=== PATIENT | male | born 1955 | race Caucasian/White ===

== ENCOUNTER 2017-12-12 10:00 | Inpatient (IN) | payer MEDICAID ==
[~2017-12-12] VITALS: Ht 181.6 cm; Wt 114.1 kg
[~2017-12-12 10:00] MED LIST: ALBU8.5H8 INH; AMIO200T57 PO; ARIP30TA8 PO; FINA5TAB11 PO; FLUP2.5T PO; MULT-38 PO; PYRI60TA PO; SYN0.088T PO; ZOL50T PO
[2017-12-12 10:53] LABS: CLARITY,URINE CLOUDY (Clear); COLOR,URINE STRAW (Yellow); GLUCOSE, URINE NEGATIVE (Neg); KETONES,URINE NEGATIVE (Neg); LEUKOCYTE ESTERASE ,URINE LARGE (Neg); NITRITES, URINE NEGATIVE (Neg); OCCULT BLOOD,URINE LARGE (Neg); PH,URINE 5.5 (4.8-8.0); PROTEIN,URINE TRACE mg/dl (Neg); UROBILINOGEN,URINE 0.2 E.U/dL (0.2-1.0)
[2017-12-12 10:56] LABS: UA COLLECTION TYPE STRAIGHT CATH
[2017-12-12 11:03] LABS: BASOPHILS % (AUTO) 0.2 % (0-1); EOSINOPHILS # (AUTO) 0.3 X10'3 (0-0.9); EOSINOPHILS % (AUTO) 1.8 % (0-6); HEMATOCRIT 35.6 % (42.0-52.0); HEMOGLOBIN 12.1 g/dl (14.0-17.9); LYMPHOCYTES # (AUTO) 0.9 X10'3 (1.1-4.8); LYMPHOCYTES % (AUTO) 5.8 % (21-51); MEAN CORPUSCULAR HEMOGLOBIN 31.5 PG (27.0-31.0); MEAN CORPUSCULAR HGB CONC 33.9 % (33.0-36.5); MEAN PLATELET VOLUME 7.2 FL (7.4-10.4); MONOCYTES # (AUTO) 0.4 X10'3 (0-0.9); MONOCYTES % (AUTO) 2.4 % (2-12); NEUTROPHILS # (AUTO) 14.7 X10'3 (1.8-7.7); NEUTROPHILS % (AUTO) 89.8 % (42-75); PLATELET COUNT 252 X10'3 (140-440); RED BLOOD COUNT 3.83 X10'6 (4.70-6.10); RED CELL DISTRIBUTION WIDTH 13.4 % (11.5-14.5); WHITE BLOOD COUNT 16.4 X10'3 (4.5-11.0)
[2017-12-12 11:04] LABS: BACTERIA,URINE 3+ /HPF (Neg); SQUAMOUS EPITHELIAL CELL,UR FEW /LPF (FEW); WBC,URINE TNTC /HPF (0-4)
[2017-12-12 11:05] LABS: TRANSITIONAL EPI CELLS,URINE FEW /HPF
[2017-12-12] MEDS ORDERED: CefTRIAXone 2gm/D5W 50ml 50 ML IV ONE (11:25)
[2017-12-12] MEDS ORDERED: normal saline 1000ML IV soln IV ONE (11:25)
[2017-12-12 11:28] LABS: ALANINE AMINOTRANSFERASE 23 U/L (12-78); ALBUMIN 2.7 G/DL (3.4-5.0); ALBUMIN/GLOBULIN RATIO 0.6 (1.1-1.5); ALKALINE PHOSPHATASE 86 IU/L (46-116); ANION GAP 11 (8-16); ASPARTATE AMINO TRANSFERASE 25 U/L (10-37); BILIRUBIN,TOTAL 1.2 MG/DL (0.1-1.0); BLOOD UREA NITROGEN 43 MG/DL (7-18); BUN/CREATININE RATIO 13.9 (5.4-32.0); CALCIUM 8.3 MG/DL (8.5-10.1); CHLORIDE 94 MMOL/L (99-107); GLUCOSE 167 MG/DL (70-104); POTASSIUM 4.2 MMOL/L (3.5-5.1); SODIUM 127 MMOL/L (135-145); TOTAL CARBON DIOXIDE 21.8 MMOL/L (24-32); TOTAL PROTEIN 7.1 G/DL (6.4-8.2); eGFR 20 ML/MIN
[2017-12-12] MEDS ORDERED: acetaminophen 325mg tablet PO PRN (11:45)
[2017-12-12] MEDS ORDERED: magnesium hydroxide 30ml (MOM) UD suspension PO PRN (11:45)
[2017-12-12] MEDS ORDERED: mag hydrox/Alum hydrox/simeth 30ml oral suspension PO PRN (11:45)
[2017-12-12] MEDS ORDERED: HYDROcodone/acetaminophen 5mg/325mg tablet PO PRN (11:45)
[2017-12-12] MEDS ORDERED: HYDROcodone/acetaminophen 10/325mg tab PO PRN (11:45)
[2017-12-12] MEDS ORDERED: ondansetron/PF 4mg/2ml inj IV PRN (11:45)
[2017-12-12] MEDS ORDERED: albuterol 2.5 MG/3 ML nebule NEB PRN (12:05)
[2017-12-12] MEDS ORDERED: TAMS0.4C32 PO (12:52)
[2017-12-12] MEDS ORDERED: SPIR25TA5 PO (12:54)
[2017-12-12] MEDS ORDERED: ASPI-611 PO (12:59)
[2017-12-12] MEDS ORDERED: CRAN1TAB3 (12:59)
[2017-12-12] MEDS ORDERED: UBID100C16 PO (12:59)
[2017-12-12] MEDS ORDERED: LEVO75TA PO (13:01)
[2017-12-12 13:20] VITALS: BP 109/63
[2017-12-12] MEDS: normal saline 1000ml 1,000 ML IV SCH ×2 (14:58→21:43)
[2017-12-12 18:29] LABS: CHOLESTEROL 110 MG/DL (0-200); HDL CHOLESTEROL 55 MG/DL (35-60); LDL CHOLESTEROL 48 MG/DL (50-100); TRIGLYCERIDES 38 MG/DL (20-135)
[2017-12-12] MEDS: amiodarone 200mg tablet PO SCH (19:30)
[2017-12-12] MEDS: heparin, porcine 5000 units/ml vial SQ SCH (19:30)
[2017-12-12 20:00] VITALS: BP_SYST 118; BP_SYST 124; BP_DIAS 66; BP_DIAS 75
[2017-12-13] VITALS: BP 98/63
[2017-12-13] MEDS: normal saline 1000ml 1,000 ML IV SCH ×2 (01:39→22:28)
[2017-12-13 05:17] LABS: BASOPHILS % (AUTO) 0.2 % (0-1); EOSINOPHILS # (AUTO) 0.3 X10'3 (0-0.9); EOSINOPHILS % (AUTO) 2.2 % (0-6); HEMOGLOBIN 10.7 g/dl (14.0-17.9); LYMPHOCYTES # (AUTO) 1.3 X10'3 (1.1-4.8); LYMPHOCYTES % (AUTO) 10.7 % (21-51); MEAN CORPUSCULAR HEMOGLOBIN 30.7 PG (27.0-31.0); MEAN CORPUSCULAR HGB CONC 33.4 % (33.0-36.5); MEAN CORPUSCULAR VOLUME 91.9 FL (78-98); MEAN PLATELET VOLUME 7.5 FL (7.4-10.4); NEUTROPHILS # (AUTO) 9.5 X10'3 (1.8-7.7); NEUTROPHILS % (AUTO) 78.9 % (42-75); PLATELET COUNT 253 X10'3 (140-440); RED BLOOD COUNT 3.48 X10'6 (4.70-6.10); RED CELL DISTRIBUTION WIDTH 13.5 % (11.5-14.5); WHITE BLOOD COUNT 12.1 X10'3 (4.5-11.0)
[2017-12-13 05:18] LABS: ALANINE AMINOTRANSFERASE 22 U/L (12-78); ALBUMIN 2.4 G/DL (3.4-5.0); ALBUMIN/GLOBULIN RATIO 0.6 (1.1-1.5); ALKALINE PHOSPHATASE 78 IU/L (46-116); ANION GAP 9 (8-16); ASPARTATE AMINO TRANSFERASE 29 U/L (10-37); BILIRUBIN,TOTAL 0.5 MG/DL (0.1-1.0); BLOOD UREA NITROGEN 38 MG/DL (7-18); BUN/CREATININE RATIO 16.3 (5.4-32.0); CALCIUM 8.3 MG/DL (8.5-10.1); CHLORIDE 100 MMOL/L (99-107); CREATININE 2.33 MG/DL (0.60-1.10); GLUCOSE 101 MG/DL (70-104); MAGNESIUM 2.1 MG/DL (1.5-2.4); PHOSPHORUS 2.9 MG/DL (2.3-4.5); POTASSIUM 4.7 MMOL/L (3.5-5.1); SODIUM 133 MMOL/L (135-145); TOTAL CARBON DIOXIDE 23.6 MMOL/L (24-32); TOTAL PROTEIN 6.3 G/DL (6.4-8.2); eGFR 28 ML/MIN
[2017-12-13 07:16] VITALS: BP 94/52
[2017-12-13 08:00] VITALS: BP_SYST 110; BP_SYST 115; BP_SYST 125; BP_DIAS 61; BP_DIAS 73
[2017-12-13] MEDS: CefTRIAXone/D5W-Rocephin 1gm 50 ML IV SCH (08:00)
[2017-12-13] MEDS ORDERED: non-formulary drug (Aspirin (Aspir 81) 1 TAB) PO SCH (08:00)
[2017-12-13] MEDS ORDERED: levoTHYROXINE 75mcg tablet PO SCH (08:00)
[2017-12-13] MEDS: pyridostigmine br 60mg tablet PO SCH (08:00)
[2017-12-13] MEDS: aripiprazole 5mg tablet PO SCH (10:17)
[2017-12-13] MEDS: aspirin 81mg tablet.DR PO SCH (10:17)
[2017-12-13] MEDS: levoTHYROXINE 75mcg tablet PO SCH (10:17)
[2017-12-13] MEDS: amiodarone 200mg tablet PO SCH ×2 (10:18→22:27)
[2017-12-13] MEDS: finasteride 5mg tablet PO SCH (10:18)
[2017-12-13] MEDS: sertraline 50mg tablet PO SCH (10:18)
[2017-12-13] MEDS: multivitamins, therapeutics tablet PO SCH (10:18)
[2017-12-13] MEDS: tamsulosin 0.4mg capsule PO SCH (10:18)
[2017-12-13] MEDS: heparin, porcine 5000 units/ml vial SQ SCH ×2 (10:19→22:28)
[2017-12-13 11:00] VITALS: BP 103/43
[2017-12-13 18:00] VITALS: BP 118/86
[2017-12-14 00:40] VITALS: BP 103/68
[2017-12-14] MEDS: normal saline 1000ml 1,000 ML IV SCH ×3 (04:24→22:40)
[2017-12-14 05:31] LABS: BASOPHILS % (AUTO) 0.5 % (0-1); EOSINOPHILS # (AUTO) 0.3 X10'3 (0-0.9); EOSINOPHILS % (AUTO) 3.4 % (0-6); HEMATOCRIT 31.9 % (42.0-52.0); HEMOGLOBIN 10.7 g/dl (14.0-17.9); LYMPHOCYTES # (AUTO) 1.9 X10'3 (1.1-4.8); MEAN CORPUSCULAR HEMOGLOBIN 30.9 PG (27.0-31.0); MEAN CORPUSCULAR HGB CONC 33.5 % (33.0-36.5); MEAN CORPUSCULAR VOLUME 92.3 FL (78-98); MEAN PLATELET VOLUME 7.7 FL (7.4-10.4); MONOCYTES # (AUTO) 0.8 X10'3 (0-0.9); MONOCYTES % (AUTO) 9.2 % (2-12); NEUTROPHILS # (AUTO) 5.4 X10'3 (1.8-7.7); NEUTROPHILS % (AUTO) 64.9 % (42-75); PLATELET COUNT 284 X10'3 (140-440); RED BLOOD COUNT 3.45 X10'6 (4.70-6.10); RED CELL DISTRIBUTION WIDTH 12.8 % (11.5-14.5); WHITE BLOOD COUNT 8.4 X10'3 (4.5-11.0)
[2017-12-14 05:50] LABS: ALANINE AMINOTRANSFERASE 26 U/L (12-78); ALBUMIN 2.3 G/DL (3.4-5.0); ALBUMIN/GLOBULIN RATIO 0.6 (1.1-1.5); ALKALINE PHOSPHATASE 74 IU/L (46-116); ANION GAP 10 (8-16); ASPARTATE AMINO TRANSFERASE 25 U/L (10-37); BILIRUBIN,TOTAL 0.4 MG/DL (0.1-1.0); BLOOD UREA NITROGEN 37 MG/DL (7-18); BUN/CREATININE RATIO 15.9 (5.4-32.0); CALCIUM 8.2 MG/DL (8.5-10.1); CHLORIDE 102 MMOL/L (99-107); CREATININE 2.32 MG/DL (0.60-1.10); GLUCOSE 87 MG/DL (70-104); PHOSPHORUS 3.3 MG/DL (2.3-4.5); POTASSIUM 4.4 MMOL/L (3.5-5.1); SODIUM 135 MMOL/L (135-145); TOTAL CARBON DIOXIDE 22.7 MMOL/L (24-32); TOTAL PROTEIN 6.3 G/DL (6.4-8.2); eGFR 28 ML/MIN
[2017-12-14 07:13] VITALS: BP 110/74
[2017-12-14] MEDS: CefTRIAXone/D5W-Rocephin 1gm 50 ML IV SCH (08:52)
[2017-12-14] MEDS: aripiprazole 5mg tablet PO SCH (08:52)
[2017-12-14] MEDS: amiodarone 200mg tablet PO SCH ×2 (08:53→19:28)
[2017-12-14] MEDS: aspirin 81mg tablet.DR PO SCH (08:53)
[2017-12-14] MEDS: tamsulosin 0.4mg capsule PO SCH (08:54)
[2017-12-14] MEDS: pyridostigmine br 60mg tablet PO SCH (08:54)
[2017-12-14] MEDS: multivitamins, therapeutics tablet PO SCH (08:55)
[2017-12-14] MEDS: finasteride 5mg tablet PO SCH (08:55)
[2017-12-14] MEDS: levoTHYROXINE 75mcg tablet PO SCH (08:55)
[2017-12-14] MEDS: heparin, porcine 5000 units/ml vial SQ SCH ×2 (08:56→19:28)
[2017-12-14] MEDS: sertraline 50mg tablet PO SCH (08:56)
[2017-12-14 12:21] VITALS: BP 109/71
[2017-12-14] MEDS: lactobacillus rhamnosus 10,000 MMU CELLS/CAPSULE PO SCH (19:28)
[2017-12-14 20:00] VITALS: BP 147/79
[2017-12-14] MEDS ORDERED: CIPR-230 PO (23:29)
[2017-12-14] MEDS ORDERED: LACT1CAP26 PO (23:29)
[2017-12-15] VITALS: BP 121/73
[2017-12-15 05:14] LABS: BASOPHILS % (AUTO) 0.4 % (0-1); EOSINOPHILS # (AUTO) 0.2 X10'3 (0-0.9); HEMATOCRIT 34.5 % (42.0-52.0); HEMOGLOBIN 11.5 g/dl (14.0-17.9); LYMPHOCYTES # (AUTO) 1.8 X10'3 (1.1-4.8); LYMPHOCYTES % (AUTO) 22.6 % (21-51); MEAN CORPUSCULAR HEMOGLOBIN 30.9 PG (27.0-31.0); MEAN CORPUSCULAR HGB CONC 33.3 % (33.0-36.5); MEAN CORPUSCULAR VOLUME 92.7 FL (78-98); MEAN PLATELET VOLUME 7.3 FL (7.4-10.4); MONOCYTES # (AUTO) 0.6 X10'3 (0-0.9); MONOCYTES % (AUTO) 7.7 % (2-12); NEUTROPHILS # (AUTO) 5.3 X10'3 (1.8-7.7); NEUTROPHILS % (AUTO) 66.3 % (42-75); PLATELET COUNT 306 X10'3 (140-440); RED BLOOD COUNT 3.72 X10'6 (4.70-6.10); RED CELL DISTRIBUTION WIDTH 13.5 % (11.5-14.5)
[2017-12-15 05:57] LABS: ALANINE AMINOTRANSFERASE 28 U/L (12-78); ALBUMIN 2.4 G/DL (3.4-5.0); ALBUMIN/GLOBULIN RATIO 0.6 (1.1-1.5); ALKALINE PHOSPHATASE 78 IU/L (46-116); ANION GAP 11 (8-16); ASPARTATE AMINO TRANSFERASE 25 U/L (10-37); BILIRUBIN,TOTAL 0.3 MG/DL (0.1-1.0); BLOOD UREA NITROGEN 29 MG/DL (7-18); BUN/CREATININE RATIO 14.9 (5.4-32.0); CALCIUM 8.3 MG/DL (8.5-10.1); CHLORIDE 104 MMOL/L (99-107); CREATININE 1.94 MG/DL (0.60-1.10); GLUCOSE 88 MG/DL (70-104); PHOSPHORUS 3.5 MG/DL (2.3-4.5); POTASSIUM 4.2 MMOL/L (3.5-5.1); SODIUM 136 MMOL/L (135-145); TOTAL CARBON DIOXIDE 20.9 MMOL/L (24-32); TOTAL PROTEIN 6.7 G/DL (6.4-8.2); eGFR 35 ML/MIN
[2017-12-15 06:54] VITALS: BP 111/69
[2017-12-15] MEDS: normal saline 1000ml 1,000 ML IV SCH (08:05)
[2017-12-15] MEDS: levoTHYROXINE 75mcg tablet PO SCH (08:06)
[2017-12-15] MEDS: aspirin 81mg tablet.DR PO SCH (08:06)
[2017-12-15] MEDS: amiodarone 200mg tablet PO SCH (08:06)
[2017-12-15] MEDS: multivitamins, therapeutics tablet PO SCH (08:06)
[2017-12-15] MEDS: pyridostigmine br 60mg tablet PO SCH (08:06)
[2017-12-15] MEDS: lactobacillus rhamnosus 10,000 MMU CELLS/CAPSULE PO SCH (08:06)
[2017-12-15] MEDS: heparin, porcine 5000 units/ml vial SQ SCH (08:06)
[2017-12-15] MEDS: sertraline 50mg tablet PO SCH (08:06)
[2017-12-15] MEDS: tamsulosin 0.4mg capsule PO SCH (08:07)
[2017-12-15] MEDS: aripiprazole 5mg tablet PO SCH (08:12)
[2017-12-15] MEDS: finasteride 5mg tablet PO SCH (08:12)
[2017-12-15] MEDS: CefTRIAXone/D5W-Rocephin 1gm 50 ML IV SCH (08:15)
== END 2017-12-15 11:50 | disposition home health service (06) | DRG 720 ==
LOC: ER 10:02 → ED HOLD 11:43 → SUR 3N 13:06
PROVIDERS: ADMIT Internal Medicine; ATTEND Internal Medicine
PROC: 0T9B70Z Drainage of Bladder with Drainage Device, Via Natural or Artificial Opening (ICD-10-PCS; principal; 2017-12-12)
DX: A41.9 Sepsis, unspecified organism (principal); N17.9 Acute kidney failure, unspecified; E11.22 Type 2 diabetes mellitus with diabetic chronic kidney disease; I69.351 Hemiplegia and hemiparesis following cerebral infarction affecting right dominant side; F20.9 Schizophrenia, unspecified; E03.9 Hypothyroidism, unspecified; J44.9 Chronic obstructive pulmonary disease, unspecified; D64.9 Anemia, unspecified; N18.9 Chronic kidney disease, unspecified; E78.5 Hyperlipidemia, unspecified; R32 Unspecified urinary incontinence; I12.9 Hypertensive chronic kidney disease with stage 1 through stage 4 chronic kidney disease, or unspecified chronic kidney disease; N39.0 Urinary tract infection, site not specified; I25.2 Old myocardial infarction; Z79.899 Other long term (current) drug therapy; Z82.0 Family history of epilepsy and other diseases of the nervous system; Z79.4 Long term (current) use of insulin
CPT/HCPCS: 36415; 80053; 80061; 81001; 82948; 83036; 83605; 83735; 84100; 84439; 84443; 85025; 87040; 87070; 87077; 87088; 87186; 96365; 97110; 97116; 97161; 97535; 99291; A4315; A6212; A6213; J0696; J1644; J7030

== ENCOUNTER 2018-02-20 15:17 | Inpatient (IN) | payer MEDICAID ==
[~2018-02-20] VITALS: Ht 610.5 cm; Wt 114.1 kg
[~2018-02-20 15:17] MED LIST changes: +AMIO200T40 PO; -AMIO200T57 PO; +ASPI-611 PO; +CRAN1TAB3; +LACT1CAP26 PO; +LEVO75TA PO; -PYRI60TA PO; +SPIR25TA5 PO; -SYN0.088T PO; +TAMS0.4C32 PO; +UBID100C16 PO
[2018-02-20 17:08] LABS: BASOPHILS % (AUTO) 0.2 % (0-1); EOSINOPHILS # (AUTO) 0.2 X10'3 (0-0.9); EOSINOPHILS % (AUTO) 1.3 % (0-6); HEMATOCRIT 39.1 % (42.0-52.0); HEMOGLOBIN 13.3 g/dl (14.0-17.9); LYMPHOCYTES # (AUTO) 1.7 X10'3 (1.1-4.8); LYMPHOCYTES % (AUTO) 10.3 % (21-51); MEAN CORPUSCULAR HEMOGLOBIN 31.4 PG (27.0-31.0); MEAN CORPUSCULAR VOLUME 92.5 FL (78-98); MEAN PLATELET VOLUME 7.4 FL (7.4-10.4); MONOCYTES # (AUTO) 1.7 X10'3 (0-0.9); MONOCYTES % (AUTO) 10.3 % (2-12); NEUTROPHILS # (AUTO) 13.1 X10'3 (1.8-7.7); NEUTROPHILS % (AUTO) 77.9 % (42-75); PLATELET COUNT 215 X10'3 (140-440); RED BLOOD COUNT 4.23 X10'6 (4.70-6.10); RED CELL DISTRIBUTION WIDTH 13.9 % (11.5-14.5); WHITE BLOOD COUNT 16.8 X10'3 (4.5-11.0)
[2018-02-20 17:22] LABS: ALANINE AMINOTRANSFERASE 15 U/L (12-78); ALBUMIN 3.1 G/DL (3.4-5.0); ALBUMIN/GLOBULIN RATIO 0.7 (1.1-1.5); ALKALINE PHOSPHATASE 93 IU/L (46-116); ANION GAP 7 (8-16); ASPARTATE AMINO TRANSFERASE 19 U/L (10-37); BILIRUBIN,TOTAL 1.7 MG/DL (0.1-1.0); BLOOD UREA NITROGEN 27 MG/DL (7-18); BUN/CREATININE RATIO 10.5 (5.4-32.0); CALCIUM 8.9 MG/DL (8.5-10.1); CHLORIDE 93 MMOL/L (99-107); CREATININE 2.56 MG/DL (0.60-1.10); GLUCOSE 117 MG/DL (70-104); POTASSIUM 4.5 MMOL/L (3.5-5.1); SODIUM 126 MMOL/L (135-145); TOTAL CARBON DIOXIDE 26.5 MMOL/L (24-32); TOTAL PROTEIN 7.4 G/DL (6.4-8.2); eGFR 25 ML/MIN
[2018-02-20] MEDS ORDERED: normal saline 1000ML IV soln IV ONE (17:40)
[2018-02-20] MEDS ORDERED: levoFLOXACIN-Levaquin 500mg/D5 100 ML IV ONE (17:55)
[2018-02-20] MEDS ORDERED: CHOL100046 PO (18:01)
[2018-02-20] MEDS ORDERED: VITE1000C PO (18:01)
[2018-02-20 18:04] LABS: CLARITY,URINE CLOUDY (Clear); COLOR,URINE STRAW (Yellow); GLUCOSE, URINE NEGATIVE (Neg); KETONES,URINE NEGATIVE (Neg); LEUKOCYTE ESTERASE ,URINE LARGE (Neg); NITRITES, URINE POSITIVE (Neg); OCCULT BLOOD,URINE MODERATE (Neg); PROTEIN,URINE 30 mg/dl (Neg); UA COLLECTION TYPE NON-SPECIFIED; UROBILINOGEN,URINE 0.2 E.U/dL (0.2-1.0)
[2018-02-20 18:10] LABS: WBC,URINE TNTC /HPF (0-4)
[2018-02-20 18:11] LABS: BACTERIA,URINE 3+ /HPF (Neg); MUCUS STRANDS NONE SEEN /LPF (Neg); SQUAMOUS EPITHELIAL CELL,UR NONE SEEN /LPF (FEW)
[2018-02-20] MEDS ORDERED: ondansetron/PF 4mg/2ml inj IV PRN (19:25)
[2018-02-20] MEDS ORDERED: acetaminophen 325mg tablet PO PRN (19:25)
[2018-02-20] MEDS ORDERED: magnesium hydroxide 30ml (MOM) UD suspension PO PRN (19:25)
[2018-02-20] MEDS ORDERED: mag hydrox/Alum hydrox/simeth 30ml oral suspension PO PRN (19:25)
[2018-02-20] MEDS ORDERED: HYDROcodone/acetaminophen 5mg/325mg tablet PO PRN (19:25)
[2018-02-20] MEDS ORDERED: non-formulary drug (Albuterol Sulfate (Proair Hfa) 2 PUFFS) INH SCH (19:30)
[2018-02-20] MEDS ORDERED: albuterol 2.5 MG/3 ML nebule NEB PRN (19:40)
[2018-02-20] MEDS: heparin, porcine 5000 units/ml vial SQ SCH (20:09)
[2018-02-20] MEDS: normal saline 1000ml 1,000 ML IV SCH (20:10)
[2018-02-20 21:00] VITALS: BP 123/73
[2018-02-20 22:00] VITALS: BP 140/88
[2018-02-21 02:00] VITALS: BP 110/66
[2018-02-21] MEDS: normal saline 1000ml 1,000 ML IV SCH ×2 (05:21→15:21)
[2018-02-21 06:00] VITALS: BP 112/58
[2018-02-21 06:53] LABS: BASOPHILS % (AUTO) 0.1 % (0-1); EOSINOPHILS # (AUTO) 0.2 X10'3 (0-0.9); EOSINOPHILS % (AUTO) 1.1 % (0-6); HEMATOCRIT 35.7 % (42.0-52.0); LYMPHOCYTES # (AUTO) 1.4 X10'3 (1.1-4.8); MEAN CORPUSCULAR HGB CONC 33.6 % (33.0-36.5); MEAN CORPUSCULAR VOLUME 92.3 FL (78-98); MONOCYTES # (AUTO) 1.8 X10'3 (0-0.9); MONOCYTES % (AUTO) 12.9 % (2-12); NEUTROPHILS # (AUTO) 10.7 X10'3 (1.8-7.7); NEUTROPHILS % (AUTO) 75.9 % (42-75); PLATELET COUNT 193 X10'3 (140-440); RED BLOOD COUNT 3.86 X10'6 (4.70-6.10); RED CELL DISTRIBUTION WIDTH 13.9 % (11.5-14.5); WHITE BLOOD COUNT 14.1 X10'3 (4.5-11.0)
[2018-02-21 07:06] LABS: ALANINE AMINOTRANSFERASE 14 U/L (12-78); ALBUMIN 2.6 G/DL (3.4-5.0); ALBUMIN/GLOBULIN RATIO 0.7 (1.1-1.5); ALKALINE PHOSPHATASE 83 IU/L (46-116); ANION GAP 6 (8-16); ASPARTATE AMINO TRANSFERASE 17 U/L (10-37); BILIRUBIN,TOTAL 1.3 MG/DL (0.1-1.0); BLOOD UREA NITROGEN 27 MG/DL (7-18); BUN/CREATININE RATIO 13.2 (5.4-32.0); CALCIUM 8.4 MG/DL (8.5-10.1); CHLORIDE 101 MMOL/L (99-107); CREATININE 2.04 MG/DL (0.60-1.10); GLUCOSE 105 MG/DL (70-104); POTASSIUM 4.3 MMOL/L (3.5-5.1); SODIUM 131 MMOL/L (135-145); TOTAL CARBON DIOXIDE 23.6 MMOL/L (24-32); TOTAL PROTEIN 6.4 G/DL (6.4-8.2); eGFR 33 ML/MIN
[2018-02-21] MEDS: cefTRIAXone 1g/NS 100ml IVPB 100 ML IV SCH (07:20)
[2018-02-21] MEDS: heparin, porcine 5000 units/ml vial SQ SCH ×2 (07:20→20:48)
[2018-02-21] MEDS: levoTHYROXINE 75mcg tablet PO SCH (07:21)
[2018-02-21] MEDS: aspirin 81mg tablet.DR PO SCH (07:21)
[2018-02-21] MEDS: tamsulosin 0.4mg capsule PO SCH (07:22)
[2018-02-21] MEDS: sertraline 50mg tablet PO SCH (07:22)
[2018-02-21] MEDS: aripiprazole 5mg tablet PO SCH (07:23)
[2018-02-21] MEDS: amiodarone 100mg tablet PO SCH (07:24)
[2018-02-21] MEDS: finasteride 5mg tablet PO SCH (07:24)
[2018-02-21] MEDS ORDERED: ARIPIPRAZOLE 30 MG PO SCH (08:00)
[2018-02-21] MEDS ORDERED: FLUPHENAZINE HCL 2.5 MG PO SCH (08:00)
[2018-02-21] MEDS ORDERED: non-formulary drug (Aspirin (Aspir 81) 1 TAB) PO SCH (08:00)
[2018-02-21] MEDS ORDERED: pneumococcal 23-VAL P-sac vacc 25 mcg/0.5ml vial IMVAC ONE (10:00)
[2018-02-21 11:00] VITALS: BP 100/50
[2018-02-21 15:00] VITALS: BP 103/54
[2018-02-21 17:30] VITALS: BP 117/70
[2018-02-21] MEDS: lactobacillus rhamnosus 10,000 MMU CELLS/CAPSULE PO SCH (20:48)
[2018-02-21 22:00] VITALS: BP 112/63
[2018-02-22] MEDS: normal saline 1000ml 1,000 ML IV SCH ×3 (02:33→22:49)
[2018-02-22 06:00] VITALS: BP 124/85
[2018-02-22 06:56] LABS: BASOPHILS % (AUTO) 0.1 % (0-1); EOSINOPHILS # (AUTO) 0.5 X10'3 (0-0.9); EOSINOPHILS % (AUTO) 5.6 % (0-6); HEMATOCRIT 34.8 % (42.0-52.0); HEMOGLOBIN 11.6 g/dl (14.0-17.9); LYMPHOCYTES # (AUTO) 1.8 X10'3 (1.1-4.8); LYMPHOCYTES % (AUTO) 19.6 % (21-51); MEAN CORPUSCULAR HEMOGLOBIN 30.9 PG (27.0-31.0); MEAN CORPUSCULAR HGB CONC 33.3 % (33.0-36.5); MEAN CORPUSCULAR VOLUME 92.8 FL (78-98); MEAN PLATELET VOLUME 7.9 FL (7.4-10.4); MONOCYTES % (AUTO) 10.8 % (2-12); NEUTROPHILS # (AUTO) 5.9 X10'3 (1.8-7.7); NEUTROPHILS % (AUTO) 63.9 % (42-75); PLATELET COUNT 202 X10'3 (140-440); RED BLOOD COUNT 3.75 X10'6 (4.70-6.10); RED CELL DISTRIBUTION WIDTH 14.3 % (11.5-14.5); WHITE BLOOD COUNT 9.3 X10'3 (4.5-11.0)
[2018-02-22 07:15] LABS: ALANINE AMINOTRANSFERASE 13 U/L (12-78); ALBUMIN 2.6 G/DL (3.4-5.0); ALBUMIN/GLOBULIN RATIO 0.6 (1.1-1.5); ALKALINE PHOSPHATASE 67 IU/L (46-116); ANION GAP 8 (8-16); ASPARTATE AMINO TRANSFERASE 16 U/L (10-37); BILIRUBIN,TOTAL 0.7 MG/DL (0.1-1.0); BLOOD UREA NITROGEN 30 MG/DL (7-18); BUN/CREATININE RATIO 14.5 (5.4-32.0); CALCIUM 8.4 MG/DL (8.5-10.1); CHLORIDE 102 MMOL/L (99-107); CREATININE 2.07 MG/DL (0.60-1.10); GLUCOSE 88 MG/DL (70-104); SODIUM 133 MMOL/L (135-145); TOTAL CARBON DIOXIDE 23.3 MMOL/L (24-32); TOTAL PROTEIN 6.7 G/DL (6.4-8.2); eGFR 32 ML/MIN
[2018-02-22] MEDS: levoTHYROXINE 75mcg tablet PO SCH (07:48)
[2018-02-22] MEDS: aripiprazole 5mg tablet PO SCH (07:48)
[2018-02-22] MEDS: amiodarone 100mg tablet PO SCH (07:48)
[2018-02-22] MEDS: aspirin 81mg tablet.DR PO SCH (07:48)
[2018-02-22] MEDS: tamsulosin 0.4mg capsule PO SCH (07:48)
[2018-02-22] MEDS: lactobacillus rhamnosus 10,000 MMU CELLS/CAPSULE PO SCH ×2 (07:48→20:38)
[2018-02-22] MEDS: sertraline 50mg tablet PO SCH (07:48)
[2018-02-22] MEDS: heparin, porcine 5000 units/ml vial SQ SCH ×2 (07:49→20:38)
[2018-02-22] MEDS: cefTRIAXone 1g/NS 100ml IVPB 100 ML IV SCH (07:56)
[2018-02-22] MEDS: finasteride 5mg tablet PO SCH (09:53)
[2018-02-22 10:00] VITALS: BP 113/68
[2018-02-22] MEDS: nystatin 15 GM powder TP SCH ×2 (13:05→20:40)
[2018-02-22 18:00] VITALS: BP 107/71
[2018-02-22 22:00] VITALS: BP 140/89
[2018-02-23 05:41] LABS: BASOPHILS # (AUTO) 0.1 X10'3 (0-0.2); BASOPHILS % (AUTO) 0.7 % (0-1); EOSINOPHILS # (AUTO) 0.5 X10'3 (0-0.9); EOSINOPHILS % (AUTO) 6.4 % (0-6); HEMATOCRIT 34.6 % (42.0-52.0); HEMOGLOBIN 11.6 g/dl (14.0-17.9); LYMPHOCYTES # (AUTO) 2.1 X10'3 (1.1-4.8); LYMPHOCYTES % (AUTO) 25.6 % (21-51); MEAN CORPUSCULAR HEMOGLOBIN 30.8 PG (27.0-31.0); MEAN CORPUSCULAR HGB CONC 33.5 % (33.0-36.5); MEAN CORPUSCULAR VOLUME 91.7 FL (78-98); MONOCYTES # (AUTO) 0.8 X10'3 (0-0.9); MONOCYTES % (AUTO) 9.2 % (2-12); NEUTROPHILS # (AUTO) 4.8 X10'3 (1.8-7.7); NEUTROPHILS % (AUTO) 58.1 % (42-75); PLATELET COUNT 232 X10'3 (140-440); RED BLOOD COUNT 3.77 X10'6 (4.70-6.10); WHITE BLOOD COUNT 8.2 X10'3 (4.5-11.0)
[2018-02-23 06:00] VITALS: BP_SYST 137; BP_SYST 142; BP_DIAS 82; BP_DIAS 95
[2018-02-23 06:14] LABS: ALANINE AMINOTRANSFERASE 13 U/L (12-78); ALBUMIN 2.5 G/DL (3.4-5.0); ALBUMIN/GLOBULIN RATIO 0.6 (1.1-1.5); ALKALINE PHOSPHATASE 67 IU/L (46-116); ANION GAP 10 (8-16); ASPARTATE AMINO TRANSFERASE 17 U/L (10-37); BILIRUBIN,TOTAL 0.4 MG/DL (0.1-1.0); BLOOD UREA NITROGEN 29 MG/DL (7-18); BUN/CREATININE RATIO 15.4 (5.4-32.0); CALCIUM 8.8 MG/DL (8.5-10.1); CHLORIDE 103 MMOL/L (99-107); CREATININE 1.88 MG/DL (0.60-1.10); GLUCOSE 82 MG/DL (70-104); SODIUM 135 MMOL/L (135-145); TOTAL CARBON DIOXIDE 22.3 MMOL/L (24-32); TOTAL PROTEIN 6.7 G/DL (6.4-8.2); eGFR 36 ML/MIN
[2018-02-23] MEDS: normal saline 1000ml 1,000 ML IV SCH (07:21)
[2018-02-23] MEDS: cefTRIAXone 1g/NS 100ml IVPB 100 ML IV SCH (07:56)
[2018-02-23] MEDS: finasteride 5mg tablet PO SCH (07:57)
[2018-02-23] MEDS: lactobacillus rhamnosus 10,000 MMU CELLS/CAPSULE PO SCH (07:57)
[2018-02-23] MEDS: aripiprazole 5mg tablet PO SCH (07:57)
[2018-02-23] MEDS: levoTHYROXINE 75mcg tablet PO SCH (07:57)
[2018-02-23] MEDS: tamsulosin 0.4mg capsule PO SCH (07:57)
[2018-02-23] MEDS: amiodarone 100mg tablet PO SCH (07:57)
[2018-02-23] MEDS: aspirin 81mg tablet.DR PO SCH (07:57)
[2018-02-23] MEDS: sertraline 50mg tablet PO SCH (07:57)
[2018-02-23] MEDS: nystatin 15 GM powder TP SCH ×2 (07:58→12:01)
[2018-02-23] MEDS: heparin, porcine 5000 units/ml vial SQ SCH (07:58)
[2018-02-23 10:00] VITALS: BP 112/68
[2018-02-23] MEDS ORDERED: LEVO500T89 PO (12:42)
== END 2018-02-23 13:45 | disposition home or self-care (01) | DRG 720 ==
LOC: ER 15:17 → ED HOLD 19:21 → PCU 3S 21:00 → ORTHO 4S 02-21 17:21
PROVIDERS: ADMIT Internal Medicine; ATTEND Family Medicine
DX: A41.9 Sepsis, unspecified organism (principal); N17.9 Acute kidney failure, unspecified; E87.1 Hypo-osmolality and hyponatremia; F20.9 Schizophrenia, unspecified; J44.9 Chronic obstructive pulmonary disease, unspecified; N18.9 Chronic kidney disease, unspecified; N39.0 Urinary tract infection, site not specified; F17.290 Nicotine dependence, other tobacco product, uncomplicated; B96.5 Pseudomonas (aeruginosa) (mallei) (pseudomallei) as the cause of diseases classified elsewhere; F32.9 Major depressive disorder, single episode, unspecified; R33.9 Retention of urine, unspecified; I12.9 Hypertensive chronic kidney disease with stage 1 through stage 4 chronic kidney disease, or unspecified chronic kidney disease; E03.9 Hypothyroidism, unspecified; E86.0 Dehydration; I25.2 Old myocardial infarction; Z79.82 Long term (current) use of aspirin; Z79.899 Other long term (current) drug therapy; Z86.73 Personal history of transient ischemic attack (TIA), and cerebral infarction without residual deficits; Z79.890 Hormone replacement therapy; Z82.0 Family history of epilepsy and other diseases of the nervous system
CPT/HCPCS: 36415; 76775; 80053; 81001; 83605; 84443; 85025; 87040; 87070; 87077; 87088; 87186; 90732; 96365; 97110; 97116; 97161; 99285; A4353; A6212; A6213; J0696; J1644; J1956; J7030

== ENCOUNTER 2018-04-11 11:16 | Inpatient (IN) | payer MEDICAID ==
[~2018-04-11] VITALS: Ht 180.3 cm; Wt 113.0 kg
[~2018-04-11 11:16] MED LIST changes: +CHOL100046 PO; -LACT1CAP26 PO; -SPIR25TA5 PO; +VITE1000C PO
[2018-04-11] MEDS ORDERED: CefTRIAXone 2gm/D5W 50ml 50 ML IV ONE (11:45)
[2018-04-11 12:13] LABS: CLARITY,URINE CLOUDY (Clear); COLOR,URINE YELLOW (Yellow); GLUCOSE, URINE NEGATIVE (Neg); KETONES,URINE NEGATIVE (Neg); LEUKOCYTE ESTERASE ,URINE LARGE (Neg); NITRITES, URINE NEGATIVE (Neg); OCCULT BLOOD,URINE SMALL (Neg); PROTEIN,URINE NEGATIVE (Neg); UROBILINOGEN,URINE 0.2 E.U/dL (0.2-1.0)
[2018-04-11 12:15] LABS: UA COLLECTION TYPE VOIDED
[2018-04-11 12:17] LABS: WHITE BLOOD COUNT 12.3 X10'3 (4.5-11.0)
[2018-04-11 12:18] LABS: HEMATOCRIT 35.4 % (42.0-52.0); HEMOGLOBIN 12.1 g/dl (14.0-17.9); MEAN CORPUSCULAR HEMOGLOBIN 31.3 PG (27.0-31.0); MEAN CORPUSCULAR HGB CONC 34.2 % (33.0-36.5); MEAN CORPUSCULAR VOLUME 91.6 FL (78-98); RED BLOOD COUNT 3.87 X10'6 (4.70-6.10); RED CELL DISTRIBUTION WIDTH 13.1 % (11.5-14.5)
[2018-04-11 12:19] LABS: BASOPHILS % (AUTO) 0.2 % (0-1); EOSINOPHILS % (AUTO) 0.3 % (0-6); LYMPHOCYTES # (AUTO) 1.4 X10'3 (1.1-4.8); LYMPHOCYTES % (AUTO) 11.2 % (21-51); MEAN PLATELET VOLUME 7.8 FL (7.4-10.4); MONOCYTES # (AUTO) 1.5 X10'3 (0-0.9); MONOCYTES % (AUTO) 12.2 % (2-12); NEUTROPHILS # (AUTO) 9.4 X10'3 (1.8-7.7); NEUTROPHILS % (AUTO) 76.1 % (42-75); PLATELET COUNT 202 X10'3 (140-440)
[2018-04-11 12:21] LABS: RBC,URINE NONE SEEN /HPF (0-2); WBC,URINE TNTC /HPF (0-4)
[2018-04-11 12:22] LABS: PARTIAL THROMBOPLASTIN TIME 38 SECONDS (22-32); PROTHROMBIN TIME 10.6 SECONDS (9.0-12.0)
[2018-04-11 12:22] LABS: BACTERIA,URINE 3+ /HPF (Neg); SQUAMOUS EPITHELIAL CELL,UR FEW /LPF (FEW)
[2018-04-11 12:38] LABS: ALANINE AMINOTRANSFERASE 13 U/L (12-78); ALBUMIN 3.1 G/DL (3.4-5.0); ALBUMIN/GLOBULIN RATIO 0.8 (1.1-1.5); ALKALINE PHOSPHATASE 81 IU/L (46-116); ANION GAP 12 (8-16); ASPARTATE AMINO TRANSFERASE 12 U/L (10-37); BILIRUBIN,TOTAL 1.6 MG/DL (0.1-1.0); BLOOD UREA NITROGEN 30 MG/DL (7-18); BUN/CREATININE RATIO 12.3 (5.4-32.0); CALCIUM 8.5 MG/DL (8.5-10.1); CHLORIDE 95 MMOL/L (99-107); CREATININE 2.43 MG/DL (0.60-1.10); GLUCOSE 108 MG/DL (70-104); MAGNESIUM 1.8 MG/DL (1.5-2.4); POTASSIUM 4.1 MMOL/L (3.5-5.1); SODIUM 130 MMOL/L (135-145); TOTAL CARBON DIOXIDE 23.5 MMOL/L (24-32); TOTAL PROTEIN 7.1 G/DL (6.4-8.2); eGFR 27 ML/MIN
[2018-04-11] MEDS ORDERED: normal saline 1000ML IV soln IVB ONE (13:05)
[2018-04-11] MEDS: normal saline 1000ml 1,000 ML IV SCH ×2 (14:56→21:20)
[2018-04-11] MEDS ORDERED: insulin Lispro (HumaLOG) vial - multi-dose SQ SCH (15:00)
[2018-04-11] MEDS ORDERED: magnesium 4gm in 100ml NS 100 ML IV PRN (15:00)
[2018-04-11] MEDS ORDERED: magnesium Cl slow-release 64mg tablet PO PRN (15:00)
[2018-04-11] MEDS ORDERED: dextrose 50%-water 50ml dispensing syringe IV PRN ×2 (15:00)
[2018-04-11] MEDS ORDERED: magnesium 1gm/100ml D5W IVPB 100 ML IV PRN (15:00)
[2018-04-11] MEDS ORDERED: dextrose ORAL solution 15 GM/59 ML bottle PO PRN ×2 (15:00)
[2018-04-11] MEDS ORDERED: glucagon, human recombinant 1mg kit SUBCUT PRN (15:00)
[2018-04-11] MEDS ORDERED: potassium Cl 40MEQ/NS 500ml 500 ML IV PRN ×2 (15:00)
[2018-04-11] MEDS ORDERED: acetaminophen 325mg tablet PO PRN ×2 (15:00)
[2018-04-11] MEDS ORDERED: MESSAGE TO PHARMACY PO ONE (15:00)
[2018-04-11] MEDS ORDERED: bisacodyl 10mg suppository rectal RC PRN (15:00)
[2018-04-11] MEDS ORDERED: magnesium hydroxide 30ml (MOM) UD suspension PO PRN (15:00)
[2018-04-11] MEDS ORDERED: potassium Cl 20 mEq SR tablet PO PRN ×2 (15:00)
[2018-04-11] MEDS ORDERED: mag hydrox/Alum hydrox/simeth 30ml oral suspension PO PRN (15:00)
[2018-04-11] MEDS ORDERED: ondansetron/PF 4mg/2ml inj IV PRN (15:00)
[2018-04-11 15:51] LABS: HEMOGLOBIN A1C 5.4 % (4.5-6.2)
[2018-04-11 17:00] VITALS: BP 115/71
[2018-04-11 17:48] VITALS: BP 115/71
[2018-04-11] MEDS ORDERED: non-formulary drug (Albuterol Sulfate (Proair Hfa) 2 PUFFS) INH SCH (19:50)
[2018-04-11] MEDS ORDERED: albuterol 2.5 MG/3 ML nebule NEB PRN (20:05)
[2018-04-11] MEDS: cefepime 1GM/NS ADD-VANTAGE 100 ML IV SCH (20:10)
[2018-04-11] MEDS: docusate sod 100mg capsule PO SCH (20:10)
[2018-04-11 21:00] VITALS: BP 98/61
[2018-04-11] MEDS: insulin glargine (Lantus) pen - multi-dose SQ SCH (21:00)
[2018-04-11] MEDS: vitamin D (cholecalciferol) 1,000 unit tablet PO SCH (21:03)
[2018-04-12 06:44] VITALS: BP 92/55
[2018-04-12 06:56] LABS: BASOPHILS % (AUTO) 0.3 % (0-1); EOSINOPHILS # (AUTO) 0.4 X10'3 (0-0.9); EOSINOPHILS % (AUTO) 4.5 % (0-6); HEMATOCRIT 31.5 % (42.0-52.0); HEMOGLOBIN 11.1 g/dl (14.0-17.9); LYMPHOCYTES # (AUTO) 1.2 X10'3 (1.1-4.8); LYMPHOCYTES % (AUTO) 13.9 % (21-51); MEAN CORPUSCULAR HEMOGLOBIN 32.3 PG (27.0-31.0); MEAN CORPUSCULAR HGB CONC 35.3 % (33.0-36.5); MEAN CORPUSCULAR VOLUME 91.6 FL (78-98); MEAN PLATELET VOLUME 8.2 FL (7.4-10.4); MONOCYTES # (AUTO) 1.1 X10'3 (0-0.9); MONOCYTES % (AUTO) 12.9 % (2-12); NEUTROPHILS % (AUTO) 68.4 % (42-75); PLATELET COUNT 158 X10'3 (140-440); RED BLOOD COUNT 3.44 X10'6 (4.70-6.10); RED CELL DISTRIBUTION WIDTH 13.1 % (11.5-14.5); WHITE BLOOD COUNT 8.7 X10'3 (4.5-11.0)
[2018-04-12 07:10] LABS: ALBUMIN 2.6 G/DL (3.4-5.0); ANION GAP 8 (8-16); BLOOD UREA NITROGEN 28 MG/DL (7-18); BUN/CREATININE RATIO 13.3 (5.4-32.0); CALCIUM 8.4 MG/DL (8.5-10.1); CHLORIDE 103 MMOL/L (99-107); GLUCOSE 90 MG/DL (70-104); POTASSIUM 4.5 MMOL/L (3.5-5.1); SODIUM 135 MMOL/L (135-145); TOTAL CARBON DIOXIDE 24.2 MMOL/L (24-32); eGFR 32 ML/MIN
[2018-04-12] MEDS: cefepime 1GM/NS ADD-VANTAGE 100 ML IV SCH ×2 (07:28→19:52)
[2018-04-12] MEDS: aripiprazole 5mg tablet PO SCH (07:33)
[2018-04-12] MEDS: aspirin 81mg tablet.DR PO SCH (07:34)
[2018-04-12] MEDS: docusate sod 100mg capsule PO SCH ×2 (07:34→19:53)
[2018-04-12] MEDS: amiodarone 100mg tablet PO SCH (07:34)
[2018-04-12] MEDS: tamsulosin 0.4mg capsule PO SCH (07:35)
[2018-04-12] MEDS: multivitamins, therapeutics tablet PO SCH (07:36)
[2018-04-12] MEDS: levoTHYROXINE 75mcg tablet PO SCH (07:36)
[2018-04-12] MEDS: finasteride 5mg tablet PO SCH (07:36)
[2018-04-12] MEDS: sertraline 50mg tablet PO SCH (07:37)
[2018-04-12] MEDS: enoxaparin 40mg/0.4ml syringe SQ SCH (07:38)
[2018-04-12] MEDS ORDERED: ARIPIPRAZOLE 30 MG PO SCH (08:00)
[2018-04-12] MEDS ORDERED: non-formulary drug (Aspirin (Aspir 81) 1 TAB) PO SCH (08:00)
[2018-04-12] MEDS ORDERED: FLUPHENAZINE HCL 2.5 MG PO SCH (08:00)
[2018-04-12] MEDS ORDERED: non-formulary drug (Multivitamin (Daily Multiple Vitamin) 1 TAB) PO SCH (08:00)
[2018-04-12] MEDS: K and/or MAG REPLACEMENT MC SCH (08:00)
[2018-04-12 10:00] VITALS: BP 96/51
[2018-04-12] MEDS ORDERED: pneumococcal 23-VAL P-sac vacc 25 mcg/0.5ml vial IMVAC ONE (10:00)
[2018-04-12] MEDS: normal saline 1000ml 1,000 ML IV SCH ×2 (11:56→21:06)
[2018-04-12 17:00] VITALS: BP 104/64
[2018-04-12] MEDS: lactobacillus rhamnosus 10,000 MMU CELLS/CAPSULE PO SCH (19:52)
[2018-04-12] MEDS: insulin glargine (Lantus) pen - multi-dose SQ SCH (21:00)
[2018-04-12] MEDS: vitamin D (cholecalciferol) 1,000 unit tablet PO SCH (21:06)
[2018-04-12 22:00] VITALS: BP 104/69
[2018-04-13] MEDS: normal saline 1000ml 1,000 ML IV SCH (05:44)
[2018-04-13 06:46] VITALS: BP 99/67
[2018-04-13] MEDS: amiodarone 100mg tablet PO SCH (07:02)
[2018-04-13] MEDS: lactobacillus rhamnosus 10,000 MMU CELLS/CAPSULE PO SCH (07:08)
[2018-04-13] MEDS: aripiprazole 5mg tablet PO SCH (07:08)
[2018-04-13] MEDS: enoxaparin 40mg/0.4ml syringe SQ SCH (07:08)
[2018-04-13] MEDS: levoTHYROXINE 75mcg tablet PO SCH (07:08)
[2018-04-13] MEDS: aspirin 81mg tablet.DR PO SCH (07:08)
[2018-04-13] MEDS: multivitamins, therapeutics tablet PO SCH (07:08)
[2018-04-13] MEDS: docusate sod 100mg capsule PO SCH (07:08)
[2018-04-13] MEDS: cefepime 1GM/NS ADD-VANTAGE 100 ML IV SCH (07:09)
[2018-04-13] MEDS: finasteride 5mg tablet PO SCH (07:09)
[2018-04-13] MEDS: tamsulosin 0.4mg capsule PO SCH (07:20)
[2018-04-13] MEDS: sertraline 50mg tablet PO SCH (07:20)
[2018-04-13 07:49] LABS: BASOPHILS % (AUTO) 0.3 % (0-1); EOSINOPHILS # (AUTO) 0.4 X10'3 (0-0.9); EOSINOPHILS % (AUTO) 5.1 % (0-6); HEMATOCRIT 31.8 % (42.0-52.0); LYMPHOCYTES # (AUTO) 1.2 X10'3 (1.1-4.8); LYMPHOCYTES % (AUTO) 14.8 % (21-51); MEAN CORPUSCULAR HEMOGLOBIN 31.9 PG (27.0-31.0); MEAN CORPUSCULAR HGB CONC 34.5 % (33.0-36.5); MEAN CORPUSCULAR VOLUME 92.2 FL (78-98); MEAN PLATELET VOLUME 8.3 FL (7.4-10.4); MONOCYTES # (AUTO) 0.8 X10'3 (0-0.9); MONOCYTES % (AUTO) 9.7 % (2-12); NEUTROPHILS # (AUTO) 5.5 X10'3 (1.8-7.7); NEUTROPHILS % (AUTO) 70.1 % (42-75); PLATELET COUNT 202 X10'3 (140-440); RED BLOOD COUNT 3.45 X10'6 (4.70-6.10); RED CELL DISTRIBUTION WIDTH 13.1 % (11.5-14.5); WHITE BLOOD COUNT 7.9 X10'3 (4.5-11.0)
[2018-04-13] MEDS ORDERED: nystatin 15 GM powder TP SCH (08:00)
[2018-04-13] MEDS: K and/or MAG REPLACEMENT MC SCH (08:00)
[2018-04-13 08:19] LABS: ALBUMIN 2.5 G/DL (3.4-5.0); ANION GAP 9 (8-16); BLOOD UREA NITROGEN 29 MG/DL (7-18); BUN/CREATININE RATIO 14.5 (5.4-32.0); CALCIUM 9.3 MG/DL (8.5-10.1); CHLORIDE 103 MMOL/L (99-107); GLUCOSE 88 MG/DL (70-104); POTASSIUM 4.4 MMOL/L (3.5-5.1); SODIUM 136 MMOL/L (135-145); TOTAL CARBON DIOXIDE 24.2 MMOL/L (24-32); eGFR 34 ML/MIN
[2018-04-13] MEDS ORDERED: LINE600T36 PO (10:05)
[2018-04-13] MEDS ORDERED: NYSPWD TP (10:05)
[2018-04-13] MEDS ORDERED: LACT1CAP26 PO (10:05)
[2018-04-13] MEDS ORDERED: fluconazole 150mg tablet PO ONE (10:05)
[2018-04-13 10:30] VITALS: BP 105/61
== END 2018-04-13 12:15 | disposition home health service (06) | DRG 469 ==
LOC: ER 11:16 → ED HOLD 14:56 → ORTHO 4S 16:44
PROVIDERS: ADMIT Hospitalist; ATTEND Family Medicine
DX: N17.9 Acute kidney failure, unspecified (principal); E11.22 Type 2 diabetes mellitus with diabetic chronic kidney disease; G30.9 Alzheimer's disease, unspecified; F02.80 Dementia in other diseases classified elsewhere, unspecified severity, without behavioral disturbance, psychotic disturbance, mood disturbance, and anxiety; F20.9 Schizophrenia, unspecified; B96.5 Pseudomonas (aeruginosa) (mallei) (pseudomallei) as the cause of diseases classified elsewhere; B95.62 Methicillin resistant Staphylococcus aureus infection as the cause of diseases classified elsewhere; E03.9 Hypothyroidism, unspecified; N39.0 Urinary tract infection, site not specified; J44.9 Chronic obstructive pulmonary disease, unspecified; F32.9 Major depressive disorder, single episode, unspecified; N40.0 Benign prostatic hyperplasia without lower urinary tract symptoms; I12.9 Hypertensive chronic kidney disease with stage 1 through stage 4 chronic kidney disease, or unspecified chronic kidney disease; N18.3 Chronic kidney disease, stage 3 (moderate); L30.4 Erythema intertrigo; Z87.01 Personal history of pneumonia (recurrent); E66.9 Obesity, unspecified; Z68.34 Body mass index [BMI] 34.0-34.9, adult; I69.320 Aphasia following cerebral infarction; I25.2 Old myocardial infarction; Z79.82 Long term (current) use of aspirin
CPT/HCPCS: 36415; 71045; 80048; 80053; 81001; 82948; 83036; 83605; 83735; 84145; 84443; 85025; 85610; 85730; 87040; 87070; 87077; 87088; 87186; 90732; 93005; 94760; 96365; 97116; 97162; 97530; 99285; J0692; J0696; J1650; J1815; J7030; Q2037

== ENCOUNTER 2023-09-05 00:25 | Inpatient (IN) | payer MEDICARE, MEDICAID ==
[~2023-09-05] VITALS: Ht 208.3 cm; Wt 121.0 kg
[~2023-09-05 00:25] MED LIST changes: +ALBU8.5H17 INH; -ALBU8.5H8 INH; +AMI200T PO; -AMIO200T40 PO; -FLUP2.5T PO; +LACT1CAP26 PO; +NYSPWD TP; +SERT-153 PO; -ZOL50T PO; +[UNRECOGNIZED DRUG - CODE] PO
[2023-09-05 01:43] LABS: BASOPHILS % (AUTO) 0.5 % (0-1); EOSINOPHILS # (AUTO) 0.3 X10'3 (0-0.9); EOSINOPHILS % (AUTO) 4.2 % (0-6); HEMATOCRIT 36.4 % (42.0-52.0); HEMOGLOBIN 12.4 g/dl (14.0-17.9); LYMPHOCYTES # (AUTO) 2.1 X10'3 (1.1-4.8); LYMPHOCYTES % (AUTO) 27.6 % (21-51); MEAN CORPUSCULAR HEMOGLOBIN 31.4 PG (27.0-31.0); MEAN CORPUSCULAR HGB CONC 34.1 g/dL (33.0-36.5); MEAN CORPUSCULAR VOLUME 92.1 FL (78-98); MEAN PLATELET VOLUME 7.3 FL (7.4-10.4); MONOCYTES # (AUTO) 0.7 X10'3 (0-0.9); MONOCYTES % (AUTO) 9.4 % (2-12); NEUTROPHILS # (AUTO) 4.5 X10'3 (1.8-7.7); NEUTROPHILS % (AUTO) 58.3 % (42-75); PLATELET COUNT 233 X10'3 (140-440); RED BLOOD COUNT 3.95 X10'6 (4.70-6.10); RED CELL DISTRIBUTION WIDTH 13.2 % (11.5-14.5); WHITE BLOOD COUNT 7.7 X10'3 (4.5-11.0)
[2023-09-05 01:55] LABS: ALANINE AMINOTRANSFERASE 11 U/L (12-78); ALBUMIN 3.2 G/DL (3.4-5.0); ALBUMIN/GLOBULIN RATIO 0.9 (1.1-1.5); ALKALINE PHOSPHATASE 92 IU/L (46-116); ANION GAP 6 (8-16); ASPARTATE AMINO TRANSFERASE 12 U/L (10-37); BILIRUBIN,TOTAL 0.7 MG/DL (0.1-1.0); BLOOD UREA NITROGEN 33 MG/DL (7-18); BUN/CREATININE RATIO 22.6 (10.0-20.0); CALCIUM 8.2 MG/DL (8.5-10.1); CHLORIDE 102 MMOL/L (99-107); CREATININE 1.46 MG/DL (0.60-1.10); GLUCOSE 96 MG/DL (70-104); POTASSIUM 4.2 MMOL/L (3.5-5.1); SODIUM 137 MMOL/L (135-145); TOTAL CARBON DIOXIDE 29.5 MMOL/L (24-32); TOTAL PROTEIN 6.8 G/DL (6.4-8.2); eCRCL 49 ML/MIN; eGFR 48 ML/MIN
[2023-09-05 02:04] LABS: ETHANOL < 10 MG/DL (<10); THYROID STIMULATING HORMONE 4.32 ulU/ml (0.34-4.50)
[2023-09-05] MEDS ORDERED: ATOR20TA PO (04:18)
[2023-09-05] MEDS ORDERED: SPIR25TA5 PO (04:18)
[2023-09-05] MEDS ORDERED: SERT-153 PO (04:18)
[2023-09-05] MEDS: levoTHYROXINE 75mcg tablet PO SCH (07:00)
[2023-09-05] MEDS: atorvastatin 20mg tablet PO SCH (08:26)
[2023-09-05] MEDS: ARIPIPRAZOLE 15 MG TABLET PO SCH (08:26)
[2023-09-05] MEDS: sertraline 50mg tablet PO SCH (08:26)
[2023-09-05] MEDS: amiodarone 100mg tablet PO SCH (08:26)
[2023-09-05] MEDS: spironolactone 25 MG tablet PO SCH (08:41)
[2023-09-05 08:46] LABS: BILIRUBIN,DIRECT 0.2 MG/DL (0-0.3); FREE T4 (FREE THYROXINE) 1.29 NG/DL (0.73-1.40)
[2023-09-05 09:54] LABS: BILIRUBIN,URINE NEGATIVE (Neg); CLARITY,URINE TURBID (Clear); COLOR,URINE STRAW (Yellow); GLUCOSE, URINE NEGATIVE (Neg); KETONES,URINE NEGATIVE (Neg); LEUKOCYTE ESTERASE ,URINE LARGE (Neg); NITRITES, URINE POSITIVE (Neg); OCCULT BLOOD,URINE TRACE-INTACT (Neg); PROTEIN,URINE NEGATIVE (Neg); UROBILINOGEN,URINE 0.2 E.U/dL (0.2-1.0)
[2023-09-05 10:02] LABS: UA COLLECTION TYPE CLN CATCH MIDSTREAM
[2023-09-05 10:04] LABS: BACTERIA,URINE 4+ /HPF (Neg); SQUAMOUS EPITHELIAL CELL,UR MANY /LPF (FEW); WBC,URINE TNTC /HPF (0-4)
[2023-09-05 10:05] LABS: WBC CLUMPS,URINE MANY /HPF (NEGATIVE)
[2023-09-05 10:06] LABS: TRANSITIONAL EPI CELLS,URINE FEW /HPF
[2023-09-05 10:15] LABS: URINE AMPHETAMINE SCREEN NEGATIVE (Neg); URINE BARBITUATE SCREEN NEGATIVE (Neg); URINE BENZODIAZEPINES SCREEN NEGATIVE (Neg); URINE CANNABINOID SCREEN NEGATIVE (Neg); URINE COCAINE SCREEN NEGATIVE (Neg); URINE METHADONE SCREEN NEGATIVE (Neg); URINE OPIATE SCREEN NEGATIVE (Neg); URINE PHENCYCLIDINE SCREEN NEGATIVE (Neg)
[2023-09-05] MEDS ORDERED: mag hydrox/Alum hydrox/simeth 30ml oral suspension PO PRN (17:30)
[2023-09-05] MEDS ORDERED: potassium Cl 20 mEq SR tablet PO PRN ×2 (17:30)
[2023-09-05] MEDS ORDERED: potassium Cl 40MEQ/1/2NS 520ml 520 ML IV PRN (17:30)
[2023-09-05] MEDS ORDERED: magnesium 4gm in 100ml NS 100 ML IV PRN (17:30)
[2023-09-05] MEDS ORDERED: magnesium 2GM in 50ml NS 50 ML IV PRN (17:30)
[2023-09-05] MEDS: normal saline 1000ml 1,000 ML IV SCH (17:30)
[2023-09-05] MEDS ORDERED: ondansetron/PF 4mg/2ml inj IV PRN (17:30)
[2023-09-05] MEDS: ciprofloxacin lact 400MG/200ML 200 ML IV ONE (19:38)
[2023-09-05] MEDS: K and/or MAG REPLACEMENT MC SCH (19:48)
[2023-09-05] MEDS: docusate sod 100mg capsule PO SCH (19:50)
[2023-09-05] MEDS: apixaban 5mg tablet PO SCH (19:50)
[2023-09-05] MEDS ORDERED: heparin, porcine 5000 units/ml vial SQ SCH (20:00)
[2023-09-06 07:40] LABS: BASOPHILS # (AUTO) 0.1 X10'3 (0-0.2); BASOPHILS % (AUTO) 0.6 % (0-1); EOSINOPHILS # (AUTO) 0.4 X10'3 (0-0.9); EOSINOPHILS % (AUTO) 4.7 % (0-6); HEMATOCRIT 36.5 % (42.0-52.0); HEMOGLOBIN 12.2 g/dl (14.0-17.9); LYMPHOCYTES # (AUTO) 2.1 X10'3 (1.1-4.8); LYMPHOCYTES % (AUTO) 24.2 % (21-51); MEAN CORPUSCULAR HEMOGLOBIN 31.2 PG (27.0-31.0); MEAN CORPUSCULAR HGB CONC 33.5 g/dL (33.0-36.5); MEAN CORPUSCULAR VOLUME 93.2 FL (78-98); MEAN PLATELET VOLUME 7.5 FL (7.4-10.4); MONOCYTES # (AUTO) 0.9 X10'3 (0-0.9); MONOCYTES % (AUTO) 10.7 % (2-12); NEUTROPHILS # (AUTO) 5.3 X10'3 (1.8-7.7); NEUTROPHILS % (AUTO) 59.8 % (42-75); PLATELET COUNT 232 X10'3 (140-440); RED BLOOD COUNT 3.92 X10'6 (4.70-6.10); RED CELL DISTRIBUTION WIDTH 13.2 % (11.5-14.5); WHITE BLOOD COUNT 8.9 X10'3 (4.5-11.0)
[2023-09-06 07:53] LABS: ALANINE AMINOTRANSFERASE 10 U/L (12-78); ALBUMIN/GLOBULIN RATIO 0.9 (1.1-1.5); ALKALINE PHOSPHATASE 83 IU/L (46-116); ANION GAP 6 (8-16); ASPARTATE AMINO TRANSFERASE 14 U/L (10-37); BILIRUBIN,TOTAL 0.8 MG/DL (0.1-1.0); BLOOD UREA NITROGEN 35 MG/DL (7-18); BUN/CREATININE RATIO 21.6 (10.0-20.0); CALCIUM 8.2 MG/DL (8.5-10.1); CHLORIDE 103 MMOL/L (99-107); CREATININE 1.62 MG/DL (0.60-1.10); GLUCOSE 90 MG/DL (70-104); MAGNESIUM 1.9 MG/DL (1.5-2.4); POTASSIUM 4.8 MMOL/L (3.5-5.1); SODIUM 137 MMOL/L (135-145); TOTAL CARBON DIOXIDE 27.9 MMOL/L (24-32); TOTAL PROTEIN 6.5 G/DL (6.4-8.2); eCRCL 61 ML/MIN; eGFR 42 ML/MIN
[2023-09-06] MEDS: ciprofloxacin 250mg tablet PO SCH (11:28)
[2023-09-06 16:55] VITALS: RESP 18; O2SAT 96
[2023-09-06 18:00] VITALS: BP 149/94; PULSE 63; RESP 16; TEMP 98.4; O2SAT 94
[2023-09-06 22:00] VITALS: BP 137/85; PULSE 60; RESP 18; TEMP 97; O2SAT 94
[2023-09-07 06:24] VITALS: BP 161/98; PULSE 70; RESP 16; TEMP 96.8; O2SAT 95
[2023-09-07 08:00] VITALS: RESP 18; O2SAT 96
[2023-09-07 08:19] LABS: BASOPHILS % (AUTO) 0.5 % (0-1); EOSINOPHILS # (AUTO) 0.5 X10'3 (0-0.9); EOSINOPHILS % (AUTO) 6.3 % (0-6); HEMATOCRIT 37.7 % (42.0-52.0); HEMOGLOBIN 12.8 g/dl (14.0-17.9); LYMPHOCYTES % (AUTO) 27.4 % (21-51); MEAN CORPUSCULAR HEMOGLOBIN 31.5 PG (27.0-31.0); MEAN CORPUSCULAR HGB CONC 33.9 g/dL (33.0-36.5); MEAN CORPUSCULAR VOLUME 92.7 FL (78-98); MEAN PLATELET VOLUME 7.7 FL (7.4-10.4); MONOCYTES # (AUTO) 0.7 X10'3 (0-0.9); MONOCYTES % (AUTO) 9.9 % (2-12); NEUTROPHILS % (AUTO) 55.9 % (42-75); PLATELET COUNT 237 X10'3 (140-440); RED BLOOD COUNT 4.06 X10'6 (4.70-6.10); RED CELL DISTRIBUTION WIDTH 13.2 % (11.5-14.5); WHITE BLOOD COUNT 7.2 X10'3 (4.5-11.0)
[2023-09-07 10:00] VITALS: BP 127/87; PULSE 65; RESP 18; TEMP 97.9; O2SAT 93
[2023-09-07 10:17] LABS: ALANINE AMINOTRANSFERASE 11 U/L (12-78); ALBUMIN 3.2 G/DL (3.4-5.0); ALBUMIN/GLOBULIN RATIO 0.8 (1.1-1.5); ALKALINE PHOSPHATASE 89 IU/L (46-116); ANION GAP 7 (8-16); ASPARTATE AMINO TRANSFERASE 12 U/L (10-37); BLOOD UREA NITROGEN 34 MG/DL (7-18); BUN/CREATININE RATIO 20.7 (10.0-20.0); CALCIUM 8.5 MG/DL (8.5-10.1); CHLORIDE 103 MMOL/L (99-107); CREATININE 1.64 MG/DL (0.60-1.10); GLUCOSE 85 MG/DL (70-104); POTASSIUM 4.5 MMOL/L (3.5-5.1); SODIUM 138 MMOL/L (135-145); TOTAL CARBON DIOXIDE 28.1 MMOL/L (24-32); eCRCL 60 ML/MIN; eGFR 42 ML/MIN
[2023-09-07] MEDS ORDERED: ondansetron 4mg rapidly disintigrating tab PO PRN (15:14)
[2023-09-07 18:00] VITALS: BP 128/85; PULSE 58; RESP 18; TEMP 98.5; O2SAT 98
[2023-09-07 22:00] VITALS: BP 126/78; PULSE 57; RESP 16; TEMP 97.6; O2SAT 94
[2023-09-08 06:00] VITALS: BP 128/74; PULSE 60; RESP 16; TEMP 97.7; O2SAT 96
[2023-09-08 07:36] LABS: BASOPHILS % (AUTO) 0.6 % (0-1); EOSINOPHILS # (AUTO) 0.4 X10'3 (0-0.9); EOSINOPHILS % (AUTO) 5.9 % (0-6); HEMATOCRIT 38.2 % (42.0-52.0); HEMOGLOBIN 12.7 g/dl (14.0-17.9); MEAN CORPUSCULAR HEMOGLOBIN 30.9 PG (27.0-31.0); MEAN CORPUSCULAR HGB CONC 33.2 g/dL (33.0-36.5); MEAN CORPUSCULAR VOLUME 92.9 FL (78-98); MEAN PLATELET VOLUME 8.2 FL (7.4-10.4); MONOCYTES # (AUTO) 0.6 X10'3 (0-0.9); NEUTROPHILS # (AUTO) 4.2 X10'3 (1.8-7.7); NEUTROPHILS % (AUTO) 58.5 % (42-75); PLATELET COUNT 234 X10'3 (140-440); RED BLOOD COUNT 4.11 X10'6 (4.70-6.10); RED CELL DISTRIBUTION WIDTH 13.1 % (11.5-14.5); WHITE BLOOD COUNT 7.2 X10'3 (4.5-11.0)
[2023-09-08 08:07] LABS: ALANINE AMINOTRANSFERASE 12 U/L (12-78); ALBUMIN 3.1 G/DL (3.4-5.0); ALBUMIN/GLOBULIN RATIO 0.8 (1.1-1.5); ALKALINE PHOSPHATASE 87 IU/L (46-116); ANION GAP 8 (8-16); ASPARTATE AMINO TRANSFERASE 17 U/L (10-37); BILIRUBIN,TOTAL 0.9 MG/DL (0.1-1.0); BLOOD UREA NITROGEN 37 MG/DL (7-18); CALCIUM 8.7 MG/DL (8.5-10.1); CHLORIDE 103 MMOL/L (99-107); CREATININE 1.54 MG/DL (0.60-1.10); GLUCOSE 86 MG/DL (70-104); POTASSIUM 4.5 MMOL/L (3.5-5.1); SODIUM 139 MMOL/L (135-145); TOTAL CARBON DIOXIDE 27.8 MMOL/L (24-32); TOTAL PROTEIN 6.9 G/DL (6.4-8.2); eCRCL 64 ML/MIN; eGFR 45 ML/MIN
[2023-09-08 08:30] VITALS: RESP 16; O2SAT 96
[2023-09-08 10:00] VITALS: BP 123/78; PULSE 60; RESP 18; TEMP 97.6; O2SAT 98
[2023-09-08 18:00] VITALS: BP 148/84; PULSE 61; RESP 18; TEMP 97.8; O2SAT 98
[2023-09-08 20:00] VITALS: RESP 18; O2SAT 98
[2023-09-08 22:00] VITALS: BP 129/76; PULSE 61; RESP 13; TEMP 97.7; O2SAT 91
[2023-09-09 06:00] VITALS: BP 116/78; PULSE 70; RESP 14; TEMP 98.2; O2SAT 91
[2023-09-09 06:48] LABS: ALANINE AMINOTRANSFERASE 15 U/L (12-78); ALBUMIN 3.1 G/DL (3.4-5.0); ALBUMIN/GLOBULIN RATIO 0.8 (1.1-1.5); ALKALINE PHOSPHATASE 89 IU/L (46-116); ANION GAP 7 (8-16); ASPARTATE AMINO TRANSFERASE 16 U/L (10-37); BASOPHILS % (AUTO) 0.6 % (0-1); BLOOD UREA NITROGEN 36 MG/DL (7-18); BUN/CREATININE RATIO 25.2 (10.0-20.0); CALCIUM 8.4 MG/DL (8.5-10.1); CHLORIDE 103 MMOL/L (99-107); CREATININE 1.43 MG/DL (0.60-1.10); EOSINOPHILS # (AUTO) 0.5 X10'3 (0-0.9); GLUCOSE 90 MG/DL (70-104); HEMATOCRIT 39.3 % (42.0-52.0); HEMOGLOBIN 13.1 g/dl (14.0-17.9); LYMPHOCYTES # (AUTO) 2.1 X10'3 (1.1-4.8); MAGNESIUM 1.9 MG/DL (1.5-2.4); MEAN CORPUSCULAR HEMOGLOBIN 31.1 PG (27.0-31.0); MEAN CORPUSCULAR HGB CONC 33.3 g/dL (33.0-36.5); MEAN CORPUSCULAR VOLUME 93.4 FL (78-98); MEAN PLATELET VOLUME 8.1 FL (7.4-10.4); MONOCYTES # (AUTO) 0.8 X10'3 (0-0.9); MONOCYTES % (AUTO) 10.6 % (2-12); NEUTROPHILS # (AUTO) 4.4 X10'3 (1.8-7.7); NEUTROPHILS % (AUTO) 55.8 % (42-75); PLATELET COUNT 247 X10'3 (140-440); POTASSIUM 4.6 MMOL/L (3.5-5.1); RED BLOOD COUNT 4.21 X10'6 (4.70-6.10); RED CELL DISTRIBUTION WIDTH 13.1 % (11.5-14.5); SODIUM 139 MMOL/L (135-145); TOTAL CARBON DIOXIDE 28.7 MMOL/L (24-32); TOTAL PROTEIN 6.8 G/DL (6.4-8.2); WHITE BLOOD COUNT 7.9 X10'3 (4.5-11.0); eCRCL 69 ML/MIN; eGFR 49 ML/MIN
[2023-09-09 07:59] VITALS: RESP 16; O2SAT 93
[2023-09-09 10:00] VITALS: BP 124/77; PULSE 61; RESP 14; TEMP 97.8; O2SAT 93
[2023-09-09 18:00] VITALS: BP 126/75; PULSE 65; RESP 16; TEMP 97.6; O2SAT 98
[2023-09-09 20:00] VITALS: RESP 16; O2SAT 98
[2023-09-09 22:00] VITALS: BP 126/69; PULSE 65; RESP 16; TEMP 98.3; O2SAT 94
[2023-09-10 06:00] VITALS: BP 140/79; PULSE 67; RESP 19; TEMP 97.9; O2SAT 95
[2023-09-10 06:50] LABS: BASOPHILS % (AUTO) 0.7 % (0-1); EOSINOPHILS # (AUTO) 0.4 X10'3 (0-0.9); EOSINOPHILS % (AUTO) 6.2 % (0-6); HEMATOCRIT 37.5 % (42.0-52.0); HEMOGLOBIN 12.6 g/dl (14.0-17.9); LYMPHOCYTES % (AUTO) 29.3 % (21-51); MEAN CORPUSCULAR HEMOGLOBIN 31.1 PG (27.0-31.0); MEAN CORPUSCULAR HGB CONC 33.5 g/dL (33.0-36.5); MEAN CORPUSCULAR VOLUME 92.8 FL (78-98); MEAN PLATELET VOLUME 7.8 FL (7.4-10.4); MONOCYTES # (AUTO) 0.7 X10'3 (0-0.9); MONOCYTES % (AUTO) 10.6 % (2-12); NEUTROPHILS # (AUTO) 3.7 X10'3 (1.8-7.7); NEUTROPHILS % (AUTO) 53.2 % (42-75); PLATELET COUNT 234 X10'3 (140-440); RED BLOOD COUNT 4.04 X10'6 (4.70-6.10); RED CELL DISTRIBUTION WIDTH 12.9 % (11.5-14.5)
[2023-09-10 06:54] LABS: ALANINE AMINOTRANSFERASE 13 U/L (12-78); ALBUMIN/GLOBULIN RATIO 0.9 (1.1-1.5); ALKALINE PHOSPHATASE 90 IU/L (46-116); ANION GAP 7 (8-16); ASPARTATE AMINO TRANSFERASE 16 U/L (10-37); BLOOD UREA NITROGEN 37 MG/DL (7-18); BUN/CREATININE RATIO 23.4 (10.0-20.0); CALCIUM 8.4 MG/DL (8.5-10.1); CHLORIDE 104 MMOL/L (99-107); CREATININE 1.58 MG/DL (0.60-1.10); GLUCOSE 90 MG/DL (70-104); MAGNESIUM 1.8 MG/DL (1.5-2.4); POTASSIUM 4.3 MMOL/L (3.5-5.1); SODIUM 140 MMOL/L (135-145); TOTAL CARBON DIOXIDE 28.6 MMOL/L (24-32); TOTAL PROTEIN 6.5 G/DL (6.4-8.2); eCRCL 63 ML/MIN; eGFR 44 ML/MIN
[2023-09-10 08:59] VITALS: RESP 18; O2SAT 93
[2023-09-10 10:00] VITALS: BP 108/66; PULSE 75; RESP 18; TEMP 98; O2SAT 92
[2023-09-10 18:00] VITALS: BP 126/73; PULSE 67; RESP 18; TEMP 97.8; O2SAT 95
[2023-09-10 20:00] VITALS: RESP 18; O2SAT 95
[2023-09-10] MEDS: LidoCAINE 2% Topical Jelly 11mL syringe (UROJET) TOP ONE (21:25)
[2023-09-10 22:00] VITALS: BP 123/68; PULSE 76; RESP 16; TEMP 98; O2SAT 94
[2023-09-11 05:30] VITALS: BP 129/81; PULSE 67; RESP 14; TEMP 97.8; O2SAT 94
[2023-09-11 08:00] VITALS: RESP 22; O2SAT 91
[2023-09-11 08:35] VITALS: RESP 22; O2SAT 91
[2023-09-11 16:57] VITALS: BP 143/97; PULSE 67; RESP 22; TEMP 97.4
[2023-09-11 19:31] VITALS: BP 108/69; PULSE 74; RESP 16; TEMP 98.4; O2SAT 92
[2023-09-11 22:00] VITALS: BP 123/59; PULSE 69; RESP 16; TEMP 98.7; O2SAT 94
[2023-09-12] VITALS (8 sets, daily range): BP systolic 112–134; BP diastolic 80–83; PULSE 68–95; RESP 16–20; TEMP 97.6–98.4; O2SAT 92–100
[2023-09-13 06:00] VITALS: BP 141/81; PULSE 66; RESP 15; TEMP 97.5; O2SAT 94
[2023-09-13 08:00] VITALS: RESP 15; O2SAT 94
[2023-09-13 08:51] LABS: ALBUMIN 2.6 G/DL (3.4-5.0); ANION GAP 8 (8-16); BLOOD UREA NITROGEN 35 MG/DL (7-18); BUN/CREATININE RATIO 24.6 (10.0-20.0); CHLORIDE 104 MMOL/L (99-107); CREATININE 1.42 MG/DL (0.60-1.10); GLUCOSE 83 MG/DL (70-104); SODIUM 137 MMOL/L (135-145); TOTAL CARBON DIOXIDE 25.2 MMOL/L (24-32); eCRCL 70 ML/MIN; eGFR 49 ML/MIN
[2023-09-13 08:52] LABS: POTASSIUM 4.4 MMOL/L (3.5-5.1)
[2023-09-13 10:00] VITALS: BP 121/71; PULSE 72; RESP 18; TEMP 98.1; O2SAT 94
[2023-09-13 18:00] VITALS: BP 139/77; PULSE 63; RESP 14; TEMP 97.5; O2SAT 94
[2023-09-13 22:00] VITALS: BP 126/75; PULSE 64; RESP 15; TEMP 98.3; O2SAT 95
[2023-09-14 06:00] VITALS: BP 132/79; PULSE 61; RESP 16; TEMP 98.1; O2SAT 93
[2023-09-14 10:00] VITALS: BP 124/81; PULSE 61; RESP 18; TEMP 98.5; O2SAT 96
[2023-09-14 18:00] VITALS: BP 125/79; PULSE 61; RESP 18; TEMP 98; O2SAT 96
[2023-09-14 22:00] VITALS: BP 112/71; PULSE 63; RESP 17; TEMP 97.7; O2SAT 98
[2023-09-15 06:45] VITALS: BP 107/63; PULSE 54; RESP 16; TEMP 97.7; O2SAT 96
[2023-09-15 08:30] VITALS: RESP 18; O2SAT 94
[2023-09-15 10:00] VITALS: BP 105/60; PULSE 66; RESP 18; TEMP 98.5; O2SAT 94
[2023-09-15 18:00] VITALS: BP 142/86; PULSE 60; RESP 18; TEMP 97.9; O2SAT 95
[2023-09-15 22:00] VITALS: BP 116/70; PULSE 55; RESP 18; TEMP 98.1; O2SAT 91
[2023-09-16 06:00] VITALS: BP 129/78; PULSE 55; RESP 18; TEMP 98; O2SAT 93
[2023-09-16] MEDS: ringers solution, lacted 1,000 ML IV ONE (13:55)
[2023-09-16 16:10] LABS: BILIRUBIN,URINE NEGATIVE (Neg); CLARITY,URINE CLEAR (Clear); COLOR,URINE STRAW (Yellow); GLUCOSE, URINE NEGATIVE (Neg); KETONES,URINE NEGATIVE (Neg); LEUKOCYTE ESTERASE ,URINE NEGATIVE (Neg); NITRITES, URINE NEGATIVE (Neg); OCCULT BLOOD,URINE TRACE-INTACT (Neg); PROTEIN,URINE NEGATIVE (Neg); UROBILINOGEN,URINE 0.2 E.U/dL (0.2-1.0)
[2023-09-16 16:11] LABS: UA COLLECTION TYPE STRAIGHT CATH
[2023-09-16 16:17] LABS: BACTERIA,URINE NONE SEEN /HPF (Neg); MUCUS STRANDS NONE SEEN /LPF (Neg); RBC,URINE 0-2 /HPF (0-2); SQUAMOUS EPITHELIAL CELL,UR NONE SEEN /LPF (FEW); WBC,URINE NONE SEEN /HPF (0-4)
[2023-09-16 19:30] VITALS: BP 139/90; PULSE 57; RESP 18; TEMP 97.7; O2SAT 95
[2023-09-16 22:00] VITALS: BP 111/61; PULSE 57; RESP 16; TEMP 98; O2SAT 95
[2023-09-17 06:00] VITALS: BP 115/67; PULSE 57; RESP 16; TEMP 97.5; O2SAT 94
[2023-09-17 09:45] VITALS: BP 126/69; PULSE 68; RESP 14; TEMP 97.3; O2SAT 94
[2023-09-17 18:00] VITALS: BP 128/75; PULSE 56; RESP 18; TEMP 97.7; O2SAT 94
[2023-09-17 22:00] VITALS: BP 109/74; PULSE 53; RESP 18; TEMP 98.6; O2SAT 93
[2023-09-18 07:00] VITALS: BP 109/65; PULSE 53; RESP 19; TEMP 97.5; O2SAT 94
[2023-09-18 08:00] VITALS: RESP 18; O2SAT 94
[2023-09-18 10:00] VITALS: BP 128/69; PULSE 63; RESP 18; TEMP 97.9; O2SAT 94
[2023-09-18 13:09] LABS: BASOPHILS % (AUTO) 0.6 % (0-1); EOSINOPHILS # (AUTO) 0.3 X10'3 (0-0.9); HEMATOCRIT 35.7 % (42.0-52.0); HEMOGLOBIN 12.1 g/dl (14.0-17.9); LYMPHOCYTES # (AUTO) 1.9 X10'3 (1.1-4.8); LYMPHOCYTES % (AUTO) 23.8 % (21-51); MEAN CORPUSCULAR HEMOGLOBIN 31.4 PG (27.0-31.0); MEAN CORPUSCULAR HGB CONC 33.9 g/dL (33.0-36.5); MEAN CORPUSCULAR VOLUME 92.6 FL (78-98); MEAN PLATELET VOLUME 8.1 FL (7.4-10.4); MONOCYTES # (AUTO) 0.7 X10'3 (0-0.9); MONOCYTES % (AUTO) 8.3 % (2-12); NEUTROPHILS # (AUTO) 5.1 X10'3 (1.8-7.7); NEUTROPHILS % (AUTO) 63.3 % (42-75); PLATELET COUNT 232 X10'3 (140-440); RED BLOOD COUNT 3.85 X10'6 (4.70-6.10); RED CELL DISTRIBUTION WIDTH 12.9 % (11.5-14.5)
[2023-09-18 13:20] LABS: ALBUMIN 2.8 G/DL (3.4-5.0); ANION GAP 4 (8-16); BLOOD UREA NITROGEN 33 MG/DL (7-18); BUN/CREATININE RATIO 22.6 (10.0-20.0); CALCIUM 8.2 MG/DL (8.5-10.1); CHLORIDE 104 MMOL/L (99-107); CREATININE 1.46 MG/DL (0.60-1.10); GLUCOSE 91 MG/DL (70-104); POTASSIUM 4.3 MMOL/L (3.5-5.1); SODIUM 137 MMOL/L (135-145); TOTAL CARBON DIOXIDE 29.3 MMOL/L (24-32); eCRCL 68 ML/MIN; eGFR 48 ML/MIN
[2023-09-18 18:00] VITALS: BP 125/82; PULSE 54; RESP 18; TEMP 97.8; O2SAT 96
[2023-09-18] MEDS: nystatin 15 GM powder TP SCH (20:04)
[2023-09-18 22:00] VITALS: BP 131/79; PULSE 63; RESP 15; TEMP 97.5; O2SAT 94
[2023-09-19] VITALS (7 sets, daily range): BP systolic 114–144; BP diastolic 68–91; PULSE 55–61; RESP 14–18; TEMP 97.7–98.3; O2SAT 94–100
[2023-09-19] MEDS: LidoCAINE 2% Topical Jelly 11mL syringe (UROJET) TOP ONE (10:35)
[2023-09-19 13:26] LABS: BASOPHILS % (AUTO) 0.4 % (0-1); EOSINOPHILS # (AUTO) 0.3 X10'3 (0-0.9); EOSINOPHILS % (AUTO) 3.4 % (0-6); HEMATOCRIT 38.1 % (42.0-52.0); HEMOGLOBIN 12.7 g/dl (14.0-17.9); LYMPHOCYTES % (AUTO) 19.9 % (21-51); MEAN CORPUSCULAR HGB CONC 33.4 g/dL (33.0-36.5); MEAN PLATELET VOLUME 8.1 FL (7.4-10.4); MONOCYTES # (AUTO) 0.9 X10'3 (0-0.9); MONOCYTES % (AUTO) 8.4 % (2-12); NEUTROPHILS % (AUTO) 67.9 % (42-75); PLATELET COUNT 224 X10'3 (140-440); RED CELL DISTRIBUTION WIDTH 13.2 % (11.5-14.5); WHITE BLOOD COUNT 10.3 X10'3 (4.5-11.0)
[2023-09-19 13:40] LABS: ALBUMIN/GLOBULIN RATIO 0.8 (1.1-1.5); ALKALINE PHOSPHATASE 101 IU/L (46-116); ANION GAP 8 (8-16); ASPARTATE AMINO TRANSFERASE 13 U/L (10-37); BILIRUBIN,TOTAL 0.8 MG/DL (0.1-1.0); BLOOD UREA NITROGEN 29 MG/DL (7-18); BUN/CREATININE RATIO 21.2 (10.0-20.0); CALCIUM 8.5 MG/DL (8.5-10.1); CHLORIDE 103 MMOL/L (99-107); CREATININE 1.37 MG/DL (0.60-1.10); GLUCOSE 91 MG/DL (70-104); SODIUM 138 MMOL/L (135-145); TOTAL CARBON DIOXIDE 26.6 MMOL/L (24-32); TOTAL PROTEIN 6.7 G/DL (6.4-8.2); eCRCL 72 ML/MIN; eGFR 52 ML/MIN
[2023-09-19 13:50] LABS: ALANINE AMINOTRANSFERASE 11 U/L (12-78)
[2023-09-20 06:00] VITALS: BP 152/94; PULSE 60; RESP 14; TEMP 97.6; O2SAT 96
[2023-09-20 08:00] VITALS: RESP 18; O2SAT 94
[2023-09-20 10:00] VITALS: BP 123/74; PULSE 63; RESP 19; TEMP 97.5; O2SAT 94
[2023-09-20 16:28] LABS: OCCULT BLOOD STOOL NEGATIVE (Neg)
[2023-09-20 16:47] LABS: C DIFF ANTIGEN NEGATIVE (NEGATIVE); C DIFF SPECIMEN=DIARRHEA? ACCEPTABLE; C DIFFICILE TOXINS A&B NEGATIVE (Neg)
[2023-09-20 18:00] VITALS: BP 128/82; PULSE 57; RESP 18; TEMP 97.8; O2SAT 95
[2023-09-20 20:00] VITALS: RESP 18; O2SAT 95
[2023-09-20 22:00] VITALS: BP 146/92; PULSE 66; RESP 13; TEMP 98.8; O2SAT 93
[2023-09-21 06:00] VITALS: BP 131/82; PULSE 62; RESP 14; TEMP 97.1; O2SAT 93
[2023-09-21 08:00] VITALS: RESP 18; O2SAT 93
[2023-09-21 10:00] VITALS: BP 104/72; PULSE 67; RESP 18; TEMP 98; O2SAT 98
[2023-09-21 18:00] VITALS: BP 125/77; PULSE 60; RESP 12; TEMP 98.1; O2SAT 99
[2023-09-21 22:00] VITALS: BP 104/71; PULSE 81; RESP 14; TEMP 97.8; O2SAT 94
[2023-09-22 06:23] VITALS: BP 93/60; PULSE 53; RESP 12; TEMP 98.1; O2SAT 92
[2023-09-22 08:00] VITALS: RESP 12; O2SAT 92
[2023-09-22] MEDS: ringers solution, lacted 1,000 ML IV ONE (17:18)
[2023-09-22 18:00] VITALS: BP 122/63; PULSE 62; RESP 16; TEMP 97.9; O2SAT 97
[2023-09-22 20:00] VITALS: RESP 16; O2SAT 97
[2023-09-22 22:00] VITALS: BP 129/80; PULSE 64; RESP 17; TEMP 97.9; O2SAT 92
[2023-09-23 06:00] VITALS: BP 104/70; PULSE 65; RESP 16; TEMP 98.7; O2SAT 91
[2023-09-23 08:35] VITALS: RESP 18; O2SAT 96
[2023-09-23 09:41] LABS: BASOPHILS % (AUTO) 0.4 % (0-1); EOSINOPHILS # (AUTO) 0.4 X10'3 (0-0.9); EOSINOPHILS % (AUTO) 3.7 % (0-6); HEMATOCRIT 37.6 % (42.0-52.0); HEMOGLOBIN 12.5 g/dl (14.0-17.9); LYMPHOCYTES # (AUTO) 1.7 X10'3 (1.1-4.8); LYMPHOCYTES % (AUTO) 16.9 % (21-51); MEAN CORPUSCULAR HEMOGLOBIN 30.6 PG (27.0-31.0); MEAN CORPUSCULAR HGB CONC 33.2 g/dL (33.0-36.5); MONOCYTES # (AUTO) 0.9 X10'3 (0-0.9); MONOCYTES % (AUTO) 9.3 % (2-12); NEUTROPHILS # (AUTO) 6.9 X10'3 (1.8-7.7); NEUTROPHILS % (AUTO) 69.7 % (42-75); PLATELET COUNT 239 X10'3 (140-440); RED BLOOD COUNT 4.08 X10'6 (4.70-6.10); WHITE BLOOD COUNT 9.9 X10'3 (4.5-11.0)
[2023-09-23 10:00] VITALS: BP 111/69; PULSE 63; RESP 16; TEMP 97.9; O2SAT 93
[2023-09-23 10:07] LABS: ALBUMIN 2.7 G/DL (3.4-5.0); ALBUMIN/GLOBULIN RATIO 0.7 (1.1-1.5); ALKALINE PHOSPHATASE 96 IU/L (46-116); ANION GAP 9 (8-16); ASPARTATE AMINO TRANSFERASE 12 U/L (10-37); BILIRUBIN,TOTAL 0.9 MG/DL (0.1-1.0); BLOOD UREA NITROGEN 35 MG/DL (7-18); BUN/CREATININE RATIO 22.9 (10.0-20.0); CALCIUM 8.8 MG/DL (8.5-10.1); CHLORIDE 102 MMOL/L (99-107); CREATININE 1.53 MG/DL (0.60-1.10); GLUCOSE 124 MG/DL (70-104); POTASSIUM 3.8 MMOL/L (3.5-5.1); SODIUM 138 MMOL/L (135-145); TOTAL CARBON DIOXIDE 27.1 MMOL/L (24-32); TOTAL PROTEIN 6.8 G/DL (6.4-8.2); eCRCL 65 ML/MIN; eGFR 45 ML/MIN
[2023-09-23 10:08] LABS: ALANINE AMINOTRANSFERASE < 6 U/L (12-78)
[2023-09-23] MEDS: loperamide 2mg capsule PO PRN (17:44)
[2023-09-23 18:00] VITALS: BP 107/62; PULSE 67; RESP 14; TEMP 98.1; O2SAT 93
[2023-09-23 20:00] VITALS: RESP 14; O2SAT 93
[2023-09-23 22:00] VITALS: BP 112/62; PULSE 66; RESP 14; TEMP 98; O2SAT 98
[2023-09-24 06:00] VITALS: BP 103/66; PULSE 59; RESP 16; TEMP 97.5; O2SAT 90
[2023-09-24 08:00] VITALS: RESP 20; O2SAT 96
[2023-09-24 10:00] VITALS: BP 111/69; PULSE 67; RESP 16; TEMP 98; O2SAT 93
[2023-09-24 18:00] VITALS: BP 108/63; PULSE 64; RESP 20; TEMP 97.6; O2SAT 95
[2023-09-24 20:00] VITALS: RESP 20; O2SAT 95
[2023-09-24 22:00] VITALS: BP 117/67; PULSE 54; RESP 14; TEMP 98.7; O2SAT 93
[2023-09-25 06:00] VITALS: BP 115/91; PULSE 60; RESP 16; TEMP 98.3; O2SAT 92
[2023-09-25 07:30] VITALS: RESP 16; O2SAT 95
[2023-09-25 08:00] VITALS: RESP 16; O2SAT 92
[2023-09-25 10:00] VITALS: BP 101/65; PULSE 64; RESP 16; TEMP 97.5; O2SAT 96
[2023-09-25 20:00] VITALS: RESP 18; O2SAT 95
[2023-09-25 22:00] VITALS: BP 119/71; PULSE 68; RESP 16; TEMP 98.4; O2SAT 93
[2023-09-26 06:28] VITALS: BP 114/69; PULSE 63; RESP 18; TEMP 99.7; O2SAT 93
[2023-09-26 08:30] VITALS: RESP 18; O2SAT 93
[2023-09-26 10:00] VITALS: BP 106/63; PULSE 67; RESP 16; TEMP 97.6; O2SAT 91
[2023-09-26 10:44] LABS: BASOPHILS % (AUTO) 0.3 % (0-1); EOSINOPHILS # (AUTO) 0.3 X10'3 (0-0.9); EOSINOPHILS % (AUTO) 3.7 % (0-6); HEMATOCRIT 37.4 % (42.0-52.0); HEMOGLOBIN 12.7 g/dl (14.0-17.9); LYMPHOCYTES # (AUTO) 1.8 X10'3 (1.1-4.8); MEAN CORPUSCULAR HEMOGLOBIN 31.3 PG (27.0-31.0); MEAN PLATELET VOLUME 7.6 FL (7.4-10.4); MONOCYTES # (AUTO) 0.8 X10'3 (0-0.9); MONOCYTES % (AUTO) 9.1 % (2-12); NEUTROPHILS % (AUTO) 66.9 % (42-75); PLATELET COUNT 266 X10'3 (140-440); RED BLOOD COUNT 4.07 X10'6 (4.70-6.10); RED CELL DISTRIBUTION WIDTH 12.8 % (11.5-14.5); WHITE BLOOD COUNT 8.9 X10'3 (4.5-11.0)
[2023-09-26 11:08] LABS: ALANINE AMINOTRANSFERASE 10 U/L (12-78); ALBUMIN 2.9 G/DL (3.4-5.0); ALBUMIN/GLOBULIN RATIO 0.7 (1.1-1.5); ALKALINE PHOSPHATASE 105 IU/L (46-116); ANION GAP 8 (8-16); ASPARTATE AMINO TRANSFERASE 13 U/L (10-37); BILIRUBIN,TOTAL 0.7 MG/DL (0.1-1.0); BLOOD UREA NITROGEN 40 MG/DL (7-18); BUN/CREATININE RATIO 24.4 (10.0-20.0); CHLORIDE 101 MMOL/L (99-107); CREATININE 1.64 MG/DL (0.60-1.10); GLUCOSE 100 MG/DL (70-104); POTASSIUM 4.3 MMOL/L (3.5-5.1); SODIUM 136 MMOL/L (135-145); TOTAL CARBON DIOXIDE 27.2 MMOL/L (24-32); TOTAL PROTEIN 7.3 G/DL (6.4-8.2); eCRCL 60 ML/MIN; eGFR 42 ML/MIN
[2023-09-26 18:00] VITALS: BP 114/69; PULSE 63; RESP 18; TEMP 99.7; O2SAT 93
[2023-09-26 20:00] VITALS: RESP 18; O2SAT 93
[2023-09-26 22:10] VITALS: BP 105/67; PULSE 64; RESP 16; TEMP 98.9; O2SAT 93
[2023-09-27 06:00] VITALS: BP 119/76; PULSE 72; RESP 14; TEMP 98.6; O2SAT 96
[2023-09-27 10:00] VITALS: BP 112/71; PULSE 59; RESP 18; TEMP 97.7; O2SAT 98
[2023-09-27 18:00] VITALS: BP 120/68; PULSE 57; RESP 18; TEMP 97.9; O2SAT 98
[2023-09-27 20:00] VITALS: RESP 18; O2SAT 96
[2023-09-27 22:00] VITALS: BP 102/71; PULSE 61; RESP 18; TEMP 97.2; O2SAT 96
[2023-09-28] VITALS (8 sets, daily range): BP systolic 94–141; BP diastolic 56–78; PULSE 51–99; RESP 16–18; TEMP 98.2–101.9; O2SAT 93–98
[2023-09-28] MEDS: acetaminophen 325mg tablet PO PRN (14:31)
[2023-09-28] MEDS ORDERED: guaiFENesin/DM/phenylephrine syrup 120ml bottle PO PRN (15:30)
[2023-09-28] MEDS: normal saline 500ml IV soln 500 ML IV ONE (18:11)
[2023-09-28 21:39] LABS: BILIRUBIN,URINE NEGATIVE (Neg); CLARITY,URINE CLEAR (Clear); COLOR,URINE YELLOW (Yellow); GLUCOSE, URINE NEGATIVE (Neg); KETONES,URINE NEGATIVE (Neg); LEUKOCYTE ESTERASE ,URINE LARGE (Neg); NITRITES, URINE POSITIVE (Neg); OCCULT BLOOD,URINE MODERATE (Neg); PROTEIN,URINE NEGATIVE (Neg); UROBILINOGEN,URINE 0.2 E.U/dL (0.2-1.0)
[2023-09-28 21:45] LABS: UA COLLECTION TYPE CLN CATCH MIDSTREAM
[2023-09-28 21:47] LABS: WBC,URINE 50-100 /HPF (0-4)
[2023-09-28 21:48] LABS: BACTERIA,URINE 4+ /HPF (Neg); RBC,URINE 20-50 /HPF (0-2); SQUAMOUS EPITHELIAL CELL,UR FEW /LPF (FEW)
[2023-09-29 06:00] VITALS: BP 90/65; PULSE 54; RESP 16; TEMP 98.2; O2SAT 90
[2023-09-29 08:00] VITALS: RESP 16; O2SAT 90
[2023-09-29 10:00] VITALS: BP 97/62; PULSE 83; RESP 20; TEMP 99.3; O2SAT 93
[2023-09-29 18:00] VITALS: BP 97/62; PULSE 83; RESP 20; TEMP 99.3; O2SAT 93
[2023-09-29 20:00] VITALS: RESP 16; O2SAT 98
[2023-09-29 22:00] VITALS: BP 136/85; PULSE 104; RESP 20; TEMP 100; O2SAT 95
[2023-09-30 02:19] VITALS: TEMP 99.2
[2023-09-30 06:00] VITALS: BP 111/67; PULSE 73; RESP 16; TEMP 99.6; O2SAT 92
[2023-09-30 08:00] VITALS: RESP 14; O2SAT 92
[2023-09-30 10:00] VITALS: BP 90/62; PULSE 75; RESP 20; TEMP 98.1; O2SAT 93
[2023-09-30 10:05] LABS: BASOPHILS % (AUTO) 0.1 % (0-1); EOSINOPHILS # (AUTO) 0.1 X10'3 (0-0.9); EOSINOPHILS % (AUTO) 0.6 % (0-6); HEMATOCRIT 37.5 % (42.0-52.0); HEMOGLOBIN 12.5 g/dl (14.0-17.9); LYMPHOCYTES # (AUTO) 1.7 X10'3 (1.1-4.8); LYMPHOCYTES % (AUTO) 12.9 % (21-51); MEAN CORPUSCULAR HEMOGLOBIN 30.7 PG (27.0-31.0); MEAN CORPUSCULAR HGB CONC 33.4 g/dL (33.0-36.5); MONOCYTES # (AUTO) 1.1 X10'3 (0-0.9); MONOCYTES % (AUTO) 8.5 % (2-12); NEUTROPHILS # (AUTO) 10.4 X10'3 (1.8-7.7); NEUTROPHILS % (AUTO) 77.9 % (42-75); PLATELET COUNT 199 X10'3 (140-440); RED BLOOD COUNT 4.07 X10'6 (4.70-6.10); WHITE BLOOD COUNT 13.4 X10'3 (4.5-11.0)
[2023-09-30 10:07] LABS: ALANINE AMINOTRANSFERASE 15 U/L (12-78); ALBUMIN 2.3 G/DL (3.4-5.0); ALBUMIN/GLOBULIN RATIO 0.5 (1.1-1.5); ALKALINE PHOSPHATASE 92 IU/L (46-116); ANION GAP 9 (8-16); ASPARTATE AMINO TRANSFERASE 22 U/L (10-37); BILIRUBIN,TOTAL 0.8 MG/DL (0.1-1.0); BLOOD UREA NITROGEN 47 MG/DL (7-18); CALCIUM 8.2 MG/DL (8.5-10.1); CHLORIDE 98 MMOL/L (99-107); CREATININE 2.14 MG/DL (0.60-1.10); GLUCOSE 173 MG/DL (70-104); POTASSIUM 3.6 MMOL/L (3.5-5.1); SODIUM 134 MMOL/L (135-145); TOTAL CARBON DIOXIDE 27.3 MMOL/L (24-32); TOTAL PROTEIN 6.9 G/DL (6.4-8.2); eCRCL 46 ML/MIN; eGFR 31 ML/MIN
[2023-09-30] MEDS: normal saline 1000ml 1,000 ML IV SCH (11:15)
[2023-09-30] MEDS: loperamide 2mg capsule PO SCH (11:25)
[2023-09-30] MEDS: acetaminophen 325mg tablet PO PRN (20:24)
[2023-09-30 22:00] VITALS: BP 90/51; PULSE 60; RESP 18; TEMP 97.1; O2SAT 94
[2023-10-01 06:00] VITALS: BP 96/63; PULSE 80; RESP 19; TEMP 97.3; O2SAT 96
[2023-10-01 11:00] VITALS: BP 114/71; PULSE 67; RESP 17; TEMP 98.4; O2SAT 96
[2023-10-01 14:34] LABS: BASOPHILS % (AUTO) 0.4 % (0-1); EOSINOPHILS # (AUTO) 0.4 X10'3 (0-0.9); EOSINOPHILS % (AUTO) 4.4 % (0-6); HEMATOCRIT 35.3 % (42.0-52.0); LYMPHOCYTES % (AUTO) 11.5 % (21-51); MEAN CORPUSCULAR HEMOGLOBIN 31.2 PG (27.0-31.0); MEAN CORPUSCULAR HGB CONC 34.1 g/dL (33.0-36.5); MEAN CORPUSCULAR VOLUME 91.6 FL (78-98); MEAN PLATELET VOLUME 8.8 FL (7.4-10.4); MONOCYTES # (AUTO) 0.8 X10'3 (0-0.9); NEUTROPHILS # (AUTO) 6.8 X10'3 (1.8-7.7); NEUTROPHILS % (AUTO) 74.7 % (42-75); PLATELET COUNT 199 X10'3 (140-440); RED BLOOD COUNT 3.86 X10'6 (4.70-6.10); RED CELL DISTRIBUTION WIDTH 12.9 % (11.5-14.5); WHITE BLOOD COUNT 9.1 X10'3 (4.5-11.0)
[2023-10-01 14:39] LABS: ALANINE AMINOTRANSFERASE 36 U/L (12-78); ALBUMIN 2.4 G/DL (3.4-5.0); ALBUMIN/GLOBULIN RATIO 0.5 (1.1-1.5); ALKALINE PHOSPHATASE 89 IU/L (46-116); ANION GAP 9 (8-16); ASPARTATE AMINO TRANSFERASE 38 U/L (10-37); BILIRUBIN,TOTAL 0.7 MG/DL (0.1-1.0); BLOOD UREA NITROGEN 47 MG/DL (7-18); BUN/CREATININE RATIO 23.3 (10.0-20.0); CALCIUM 8.3 MG/DL (8.5-10.1); CHLORIDE 97 MMOL/L (99-107); CREATININE 2.02 MG/DL (0.60-1.10); GLUCOSE 93 MG/DL (70-104); POTASSIUM 3.9 MMOL/L (3.5-5.1); SODIUM 132 MMOL/L (135-145); TOTAL PROTEIN 6.8 G/DL (6.4-8.2); eCRCL 49 ML/MIN; eGFR 33 ML/MIN
[2023-10-01 18:00] VITALS: BP 118/68; PULSE 69; RESP 22; TEMP 97.5; O2SAT 92
[2023-10-01 22:00] VITALS: BP 111/64; PULSE 79; RESP 18; TEMP 98.7; O2SAT 93
[2023-10-02 06:00] VITALS: BP 121/74; PULSE 79; RESP 18; TEMP 98.4; O2SAT 92
[2023-10-02 11:00] VITALS: BP 96/55; PULSE 78; RESP 16; TEMP 98.6; O2SAT 97
[2023-10-02] MEDS: levoFLOXACIN 500mg tablet PO ONE (17:15)
[2023-10-02 18:00] VITALS: BP 125/77; PULSE 71; RESP 16; TEMP 98; O2SAT 96
[2023-10-02 20:00] VITALS: RESP 16; O2SAT 96
[2023-10-02 22:00] VITALS: BP 126/79; PULSE 71; RESP 18; TEMP 98.4; O2SAT 94
[2023-10-03] VITALS (12 sets, daily range): BP systolic 93–111; BP diastolic 62–77; PULSE 66–90; RESP 14–20; TEMP 97.8–98.6; O2SAT 89–96
[2023-10-03 07:25] LABS: BASOPHILS % (AUTO) 0.3 % (0-1); EOSINOPHILS # (AUTO) 0.1 X10'3 (0-0.9); EOSINOPHILS % (AUTO) 1.5 % (0-6); HEMATOCRIT 33.6 % (42.0-52.0); HEMOGLOBIN 11.4 g/dl (14.0-17.9); LYMPHOCYTES # (AUTO) 1.9 X10'3 (1.1-4.8); LYMPHOCYTES % (AUTO) 31.4 % (21-51); MEAN CORPUSCULAR HEMOGLOBIN 31.1 PG (27.0-31.0); MEAN CORPUSCULAR HGB CONC 33.8 g/dL (33.0-36.5); MEAN CORPUSCULAR VOLUME 91.9 FL (78-98); MEAN PLATELET VOLUME 7.7 FL (7.4-10.4); MONOCYTES % (AUTO) 17.3 % (2-12); NEUTROPHILS # (AUTO) 2.9 X10'3 (1.8-7.7); NEUTROPHILS % (AUTO) 49.5 % (42-75); PLATELET COUNT 214 X10'3 (140-440); RED BLOOD COUNT 3.66 X10'6 (4.70-6.10); RED CELL DISTRIBUTION WIDTH 13.1 % (11.5-14.5)
[2023-10-03 07:45] LABS: ALANINE AMINOTRANSFERASE 43 U/L (12-78); ALBUMIN 2.2 G/DL (3.4-5.0); ALBUMIN/GLOBULIN RATIO 0.6 (1.1-1.5); ALKALINE PHOSPHATASE 77 IU/L (46-116); ANION GAP 6 (8-16); ASPARTATE AMINO TRANSFERASE 46 U/L (10-37); BILIRUBIN,TOTAL 0.4 MG/DL (0.1-1.0); BLOOD UREA NITROGEN 28 MG/DL (7-18); CHLORIDE 101 MMOL/L (99-107); CREATININE 1.47 MG/DL (0.60-1.10); GLUCOSE 85 MG/DL (70-104); POTASSIUM 4.2 MMOL/L (3.5-5.1); SODIUM 135 MMOL/L (135-145); TOTAL CARBON DIOXIDE 27.8 MMOL/L (24-32); TOTAL PROTEIN 6.1 G/DL (6.4-8.2); eCRCL 67 ML/MIN; eGFR 47 ML/MIN
[2023-10-03 09:25] LABS: TOTAL CELLS COUNTED 100
[2023-10-03 09:26] LABS: PLATELET ESTIMATE NORMAL; SMUDGE CELLS 1+
[2023-10-03] MEDS: levoFLOXACIN 500mg tablet PO SCH (11:22)
[2023-10-03] MEDS: ipratropium/albuterol 3ml nebule NEB SCH (14:43)
[2023-10-03] MEDS: budesonide 0.5mg/2ml UD nebule IH SCH (20:28)
[2023-10-04] VITALS (14 sets, daily range): BP systolic 94–108; BP diastolic 46–62; PULSE 61–81; RESP 14–18; TEMP 97.3–97.8; O2SAT 94–98
[2023-10-04 08:46] LABS: BASOPHILS % (AUTO) 0.4 % (0-1); EOSINOPHILS # (AUTO) 0.1 X10'3 (0-0.9); HEMATOCRIT 37.2 % (42.0-52.0); HEMOGLOBIN 12.3 g/dl (14.0-17.9); LYMPHOCYTES % (AUTO) 27.5 % (21-51); MEAN CORPUSCULAR HEMOGLOBIN 30.9 PG (27.0-31.0); MEAN CORPUSCULAR HGB CONC 33.2 g/dL (33.0-36.5); MEAN CORPUSCULAR VOLUME 93.1 FL (78-98); MEAN PLATELET VOLUME 8.4 FL (7.4-10.4); MONOCYTES # (AUTO) 0.9 X10'3 (0-0.9); MONOCYTES % (AUTO) 12.9 % (2-12); NEUTROPHILS # (AUTO) 4.1 X10'3 (1.8-7.7); NEUTROPHILS % (AUTO) 58.2 % (42-75); PLATELET COUNT 212 X10'3 (140-440); RED CELL DISTRIBUTION WIDTH 13.3 % (11.5-14.5); WHITE BLOOD COUNT 7.1 X10'3 (4.5-11.0)
[2023-10-04 10:28] LABS: ALANINE AMINOTRANSFERASE 40 U/L (12-78); ALBUMIN 2.2 G/DL (3.4-5.0); ALBUMIN/GLOBULIN RATIO 0.5 (1.1-1.5); ALKALINE PHOSPHATASE 68 IU/L (46-116); ASPARTATE AMINO TRANSFERASE 42 U/L (10-37); BILIRUBIN,TOTAL 0.3 MG/DL (0.1-1.0); BLOOD UREA NITROGEN 35 MG/DL (7-18); BUN/CREATININE RATIO 20.7 (10.0-20.0); CALCIUM 8.3 MG/DL (8.5-10.1); CHLORIDE 100 MMOL/L (99-107); CREATININE 1.69 MG/DL (0.60-1.10); GLUCOSE 111 MG/DL (70-104); POTASSIUM 4.1 MMOL/L (3.5-5.1); TOTAL CARBON DIOXIDE 25.3 MMOL/L (24-32); TOTAL PROTEIN 6.3 G/DL (6.4-8.2); eCRCL 59 ML/MIN; eGFR 40 ML/MIN
[2023-10-04 10:29] LABS: ANION GAP 9 (8-16); SODIUM 134 MMOL/L (135-145)
[2023-10-05] VITALS (11 sets, daily range): BP systolic 84–103; BP diastolic 45–60; PULSE 61–69; RESP 16–22; TEMP 96.8–97.7; O2SAT 93–97
[2023-10-05 07:00] LABS: BASOPHILS % (AUTO) 0.4 % (0-1); EOSINOPHILS # (AUTO) 0.3 X10'3 (0-0.9); HEMATOCRIT 32.4 % (42.0-52.0); HEMOGLOBIN 10.9 g/dl (14.0-17.9); LYMPHOCYTES # (AUTO) 2.1 X10'3 (1.1-4.8); LYMPHOCYTES % (AUTO) 30.4 % (21-51); MEAN CORPUSCULAR HEMOGLOBIN 30.7 PG (27.0-31.0); MEAN CORPUSCULAR HGB CONC 33.6 g/dL (33.0-36.5); MEAN CORPUSCULAR VOLUME 91.5 FL (78-98); MEAN PLATELET VOLUME 7.3 FL (7.4-10.4); MONOCYTES # (AUTO) 0.6 X10'3 (0-0.9); MONOCYTES % (AUTO) 9.4 % (2-12); NEUTROPHILS # (AUTO) 3.8 X10'3 (1.8-7.7); NEUTROPHILS % (AUTO) 55.8 % (42-75); PLATELET COUNT 222 X10'3 (140-440); RED BLOOD COUNT 3.54 X10'6 (4.70-6.10); RED CELL DISTRIBUTION WIDTH 13.2 % (11.5-14.5); WHITE BLOOD COUNT 6.8 X10'3 (4.5-11.0)
[2023-10-05 07:26] LABS: ALANINE AMINOTRANSFERASE 38 U/L (12-78); ALBUMIN 2.2 G/DL (3.4-5.0); ALBUMIN/GLOBULIN RATIO 0.6 (1.1-1.5); ALKALINE PHOSPHATASE 71 IU/L (46-116); ANION GAP 7 (8-16); ASPARTATE AMINO TRANSFERASE 36 U/L (10-37); BILIRUBIN,TOTAL 0.4 MG/DL (0.1-1.0); BLOOD UREA NITROGEN 32 MG/DL (7-18); BUN/CREATININE RATIO 17.2 (10.0-20.0); CHLORIDE 100 MMOL/L (99-107); CREATININE 1.86 MG/DL (0.60-1.10); GLUCOSE 90 MG/DL (70-104); POTASSIUM 4.1 MMOL/L (3.5-5.1); SODIUM 134 MMOL/L (135-145); TOTAL CARBON DIOXIDE 27.5 MMOL/L (24-32); TOTAL PROTEIN 6.1 G/DL (6.4-8.2); eCRCL 53 ML/MIN; eGFR 36 ML/MIN
[2023-10-05] MEDS: albuterol 2.5 MG/3 ML nebule NEB PRN (08:27)
[2023-10-06] VITALS (14 sets, daily range): BP systolic 98–135; BP diastolic 62–86; PULSE 65–75; RESP 16–22; TEMP 96.8–98.4; O2SAT 92–96
[2023-10-06] MEDS: diatr meglu/diatrizoate 30ml oral sol.-(3 dose) bottle PO SCH (20:22)
[2023-10-07] VITALS (14 sets, daily range): BP systolic 106–117; BP diastolic 67–78; PULSE 62–72; RESP 13–18; TEMP 97.1–98.5; O2SAT 91–95
[2023-10-07 07:09] LABS: BASOPHILS % (AUTO) 0.4 % (0-1); EOSINOPHILS # (AUTO) 0.4 X10'3 (0-0.9); EOSINOPHILS % (AUTO) 6.1 % (0-6); HEMATOCRIT 33.2 % (42.0-52.0); HEMOGLOBIN 11.3 g/dl (14.0-17.9); LYMPHOCYTES # (AUTO) 1.7 X10'3 (1.1-4.8); LYMPHOCYTES % (AUTO) 29.1 % (21-51); MEAN CORPUSCULAR HEMOGLOBIN 30.7 PG (27.0-31.0); MEAN CORPUSCULAR VOLUME 90.4 FL (78-98); MEAN PLATELET VOLUME 7.3 FL (7.4-10.4); MONOCYTES # (AUTO) 0.7 X10'3 (0-0.9); MONOCYTES % (AUTO) 11.4 % (2-12); NEUTROPHILS # (AUTO) 3.1 X10'3 (1.8-7.7); PLATELET COUNT 263 X10'3 (140-440); RED BLOOD COUNT 3.67 X10'6 (4.70-6.10); RED CELL DISTRIBUTION WIDTH 12.9 % (11.5-14.5); WHITE BLOOD COUNT 5.9 X10'3 (4.5-11.0)
[2023-10-07 07:43] LABS: ALANINE AMINOTRANSFERASE 35 U/L (12-78); ALBUMIN 2.4 G/DL (3.4-5.0); ALBUMIN/GLOBULIN RATIO 0.6 (1.1-1.5); ALKALINE PHOSPHATASE 74 IU/L (46-116); ANION GAP 9 (8-16); ASPARTATE AMINO TRANSFERASE 34 U/L (10-37); BILIRUBIN,TOTAL 0.5 MG/DL (0.1-1.0); BLOOD UREA NITROGEN 26 MG/DL (7-18); BUN/CREATININE RATIO 16.5 (10.0-20.0); CALCIUM 8.5 MG/DL (8.5-10.1); CHLORIDE 101 MMOL/L (99-107); CREATININE 1.58 MG/DL (0.60-1.10); GLUCOSE 98 MG/DL (70-104); POTASSIUM 4.1 MMOL/L (3.5-5.1); SODIUM 138 MMOL/L (135-145); TOTAL CARBON DIOXIDE 28.5 MMOL/L (24-32); TOTAL PROTEIN 6.5 G/DL (6.4-8.2); eCRCL 63 ML/MIN; eGFR 44 ML/MIN
[2023-10-07] MEDS: LidoCAINE 2% Topical Jelly 11mL syringe (UROJET) TOP ONE (19:00)
[2023-10-08] VITALS (14 sets, daily range): BP systolic 98–139; BP diastolic 60–94; PULSE 65–84; RESP 14–18; TEMP 97.5–97.9; O2SAT 90–98
[2023-10-08 06:39] LABS: BASOPHILS % (AUTO) 0.7 % (0-1); EOSINOPHILS # (AUTO) 0.3 X10'3 (0-0.9); EOSINOPHILS % (AUTO) 4.8 % (0-6); HEMATOCRIT 33.6 % (42.0-52.0); HEMOGLOBIN 11.5 g/dl (14.0-17.9); LYMPHOCYTES # (AUTO) 1.8 X10'3 (1.1-4.8); LYMPHOCYTES % (AUTO) 27.4 % (21-51); MEAN CORPUSCULAR HGB CONC 34.4 g/dL (33.0-36.5); MEAN CORPUSCULAR VOLUME 90.3 FL (78-98); MONOCYTES # (AUTO) 0.7 X10'3 (0-0.9); MONOCYTES % (AUTO) 11.1 % (2-12); NEUTROPHILS # (AUTO) 3.8 X10'3 (1.8-7.7); PLATELET COUNT 285 X10'3 (140-440); RED BLOOD COUNT 3.72 X10'6 (4.70-6.10); RED CELL DISTRIBUTION WIDTH 13.1 % (11.5-14.5); WHITE BLOOD COUNT 6.7 X10'3 (4.5-11.0)
[2023-10-08 07:05] LABS: ALANINE AMINOTRANSFERASE 33 U/L (12-78); ALBUMIN 2.4 G/DL (3.4-5.0); ALBUMIN/GLOBULIN RATIO 0.6 (1.1-1.5); ALKALINE PHOSPHATASE 78 IU/L (46-116); ANION GAP 7 (8-16); ASPARTATE AMINO TRANSFERASE 31 U/L (10-37); BILIRUBIN,TOTAL 0.7 MG/DL (0.1-1.0); BLOOD UREA NITROGEN 24 MG/DL (7-18); BUN/CREATININE RATIO 13.9 (10.0-20.0); CALCIUM 8.6 MG/DL (8.5-10.1); CHLORIDE 99 MMOL/L (99-107); CREATININE 1.73 MG/DL (0.60-1.10); GLUCOSE 97 MG/DL (70-104); POTASSIUM 4.7 MMOL/L (3.5-5.1); SODIUM 135 MMOL/L (135-145); TOTAL CARBON DIOXIDE 28.6 MMOL/L (24-32); TOTAL PROTEIN 6.6 G/DL (6.4-8.2); eCRCL 57 ML/MIN; eGFR 39 ML/MIN
[2023-10-08] MEDS ORDERED: bisacodyl 10mg suppository rectal RC PRN (10:35)
[2023-10-08] MEDS: bisacodyl 10mg suppository rectal RC STA (11:57)
[2023-10-08] MEDS: lactulose 20gm/30ml cup PO SCH (15:35)
[2023-10-08] MEDS: metoclopramide 5 mg/ml inj IV SCH (15:36)
[2023-10-09] VITALS (13 sets, daily range): BP systolic 90–96; BP diastolic 52–68; PULSE 68–92; RESP 16–18; TEMP 97.9–98.3; O2SAT 89–98
[2023-10-09 08:50] LABS: BASOPHILS % (AUTO) 0.5 % (0-1); EOSINOPHILS # (AUTO) 0.3 X10'3 (0-0.9); HEMATOCRIT 35.8 % (42.0-52.0); HEMOGLOBIN 12.1 g/dl (14.0-17.9); LYMPHOCYTES # (AUTO) 2.7 X10'3 (1.1-4.8); MEAN CORPUSCULAR HEMOGLOBIN 30.8 PG (27.0-31.0); MEAN CORPUSCULAR HGB CONC 33.7 g/dL (33.0-36.5); MEAN CORPUSCULAR VOLUME 91.4 FL (78-98); MEAN PLATELET VOLUME 7.2 FL (7.4-10.4); MONOCYTES # (AUTO) 0.7 X10'3 (0-0.9); MONOCYTES % (AUTO) 7.9 % (2-12); NEUTROPHILS # (AUTO) 4.8 X10'3 (1.8-7.7); NEUTROPHILS % (AUTO) 56.6 % (42-75); PLATELET COUNT 272 X10'3 (140-440); RED BLOOD COUNT 3.92 X10'6 (4.70-6.10); RED CELL DISTRIBUTION WIDTH 13.2 % (11.5-14.5); WHITE BLOOD COUNT 8.5 X10'3 (4.5-11.0)
[2023-10-09 09:05] LABS: ALANINE AMINOTRANSFERASE 31 U/L (12-78); ALBUMIN 2.5 G/DL (3.4-5.0); ALBUMIN/GLOBULIN RATIO 0.6 (1.1-1.5); ALKALINE PHOSPHATASE 80 IU/L (46-116); ASPARTATE AMINO TRANSFERASE 25 U/L (10-37); BILIRUBIN,TOTAL 0.7 MG/DL (0.1-1.0); BLOOD UREA NITROGEN 21 MG/DL (7-18); CALCIUM 8.7 MG/DL (8.5-10.1); CHLORIDE 98 MMOL/L (99-107); CREATININE 1.75 MG/DL (0.60-1.10); GLUCOSE 95 MG/DL (70-104); TOTAL CARBON DIOXIDE 29.3 MMOL/L (24-32); TOTAL PROTEIN 6.7 G/DL (6.4-8.2); eCRCL 57 ML/MIN; eGFR 39 ML/MIN
[2023-10-09 09:14] LABS: ANION GAP 7 (8-16); POTASSIUM 4.2 MMOL/L (3.5-5.1); SODIUM 134 MMOL/L (135-145)
[2023-10-09] MEDS: metoclopramide 5 mg/ml inj IV SCH (14:44)
[2023-10-09] MEDS: lactulose 20gm/30ml cup PO ONE (15:59)
[2023-10-10] VITALS (11 sets, daily range): BP systolic 86–108; BP diastolic 58–70; PULSE 68–83; RESP 16–19; TEMP 97.7–98.7; O2SAT 90–98
[2023-10-11] VITALS (8 sets, daily range): BP systolic 97–114; BP diastolic 60–75; PULSE 63–102; RESP 16–20; TEMP 97.7–99.7; O2SAT 9–97
[2023-10-11] MEDS: guaiFENesin/DM 10ml UD oral syrup PO PRN (00:44)
[2023-10-11 08:54] LABS: BASOPHILS % (AUTO) 0.2 % (0-1); EOSINOPHILS # (AUTO) 0.4 X10'3 (0-0.9); EOSINOPHILS % (AUTO) 4.7 % (0-6); HEMOGLOBIN 11.7 g/dl (14.0-17.9); LYMPHOCYTES # (AUTO) 1.7 X10'3 (1.1-4.8); LYMPHOCYTES % (AUTO) 21.4 % (21-51); MEAN CORPUSCULAR HEMOGLOBIN 30.2 PG (27.0-31.0); MEAN CORPUSCULAR HGB CONC 33.4 g/dL (33.0-36.5); MEAN CORPUSCULAR VOLUME 90.6 FL (78-98); MEAN PLATELET VOLUME 7.1 FL (7.4-10.4); MONOCYTES # (AUTO) 0.5 X10'3 (0-0.9); NEUTROPHILS # (AUTO) 5.2 X10'3 (1.8-7.7); NEUTROPHILS % (AUTO) 66.7 % (42-75); PLATELET COUNT 300 X10'3 (140-440); RED BLOOD COUNT 3.86 X10'6 (4.70-6.10); RED CELL DISTRIBUTION WIDTH 12.9 % (11.5-14.5); WHITE BLOOD COUNT 7.8 X10'3 (4.5-11.0)
[2023-10-11 09:06] LABS: D-DIMER 0.67 MG/L FEU (0-0.50)
[2023-10-11 09:08] LABS: ALANINE AMINOTRANSFERASE 20 U/L (12-78); ALBUMIN 2.5 G/DL (3.4-5.0); ALBUMIN/GLOBULIN RATIO 0.6 (1.1-1.5); ALKALINE PHOSPHATASE 78 IU/L (46-116); ANION GAP 6 (8-16); ASPARTATE AMINO TRANSFERASE 20 U/L (10-37); BILIRUBIN,TOTAL 0.8 MG/DL (0.1-1.0); BLOOD UREA NITROGEN 23 MG/DL (7-18); C-REACTIVE PROTEIN 0.84 MG/DL (0.0-0.5); CALCIUM 8.4 MG/DL (8.5-10.1); CHLORIDE 98 MMOL/L (99-107); CREATININE 1.77 MG/DL (0.60-1.10); GLUCOSE 121 MG/DL (70-104); SODIUM 133 MMOL/L (135-145); TOTAL CARBON DIOXIDE 28.8 MMOL/L (24-32); TOTAL PROTEIN 6.5 G/DL (6.4-8.2); eCRCL 56 ML/MIN; eGFR 38 ML/MIN
[2023-10-12 07:05] VITALS: BP 101/70; PULSE 67; RESP 16; TEMP 98.3; O2SAT 93
[2023-10-12 08:00] VITALS: RESP 20; O2SAT 97
[2023-10-12 08:33] LABS: BASOPHILS % (AUTO) 0.5 % (0-1); EOSINOPHILS # (AUTO) 0.4 X10'3 (0-0.9); EOSINOPHILS % (AUTO) 5.1 % (0-6); HEMATOCRIT 35.2 % (42.0-52.0); LYMPHOCYTES # (AUTO) 1.8 X10'3 (1.1-4.8); MEAN CORPUSCULAR HGB CONC 34.1 g/dL (33.0-36.5); MEAN CORPUSCULAR VOLUME 90.9 FL (78-98); MEAN PLATELET VOLUME 7.4 FL (7.4-10.4); MONOCYTES # (AUTO) 0.8 X10'3 (0-0.9); MONOCYTES % (AUTO) 10.5 % (2-12); NEUTROPHILS # (AUTO) 4.3 X10'3 (1.8-7.7); NEUTROPHILS % (AUTO) 58.9 % (42-75); PLATELET COUNT 318 X10'3 (140-440); RED BLOOD COUNT 3.87 X10'6 (4.70-6.10); RED CELL DISTRIBUTION WIDTH 12.9 % (11.5-14.5); WHITE BLOOD COUNT 7.4 X10'3 (4.5-11.0)
[2023-10-12 08:50] LABS: ALANINE AMINOTRANSFERASE 20 U/L (12-78); ALBUMIN 2.6 G/DL (3.4-5.0); ALBUMIN/GLOBULIN RATIO 0.7 (1.1-1.5); ALKALINE PHOSPHATASE 90 IU/L (46-116); ANION GAP 5 (8-16); ASPARTATE AMINO TRANSFERASE 22 U/L (10-37); BILIRUBIN,TOTAL 0.8 MG/DL (0.1-1.0); BLOOD UREA NITROGEN 20 MG/DL (7-18); BUN/CREATININE RATIO 12.6 (10.0-20.0); CALCIUM 8.4 MG/DL (8.5-10.1); CHLORIDE 99 MMOL/L (99-107); CREATININE 1.59 MG/DL (0.60-1.10); GLUCOSE 84 MG/DL (70-104); POTASSIUM 3.9 MMOL/L (3.5-5.1); SODIUM 132 MMOL/L (135-145); TOTAL PROTEIN 6.6 G/DL (6.4-8.2); eCRCL 62 ML/MIN; eGFR 43 ML/MIN
[2023-10-12 09:16] LABS: D-DIMER 0.59 MG/L FEU (0-0.50)
[2023-10-12 10:00] VITALS: BP 95/62; PULSE 69; RESP 20; TEMP 97.6; O2SAT 97
[2023-10-12 12:11] VITALS: O2SAT 94
[2023-10-12 18:00] VITALS: BP 109/90; PULSE 86; RESP 20; TEMP 97.2; O2SAT 94
[2023-10-12] MEDS: DEXAMETHASONE 6 MG TABLET PO SCH (19:49)
[2023-10-12] MEDS ORDERED: enoxaparin 40mg/0.4ml syringe SUBCUT SCH (20:00)
[2023-10-12 22:00] VITALS: BP 107/74; PULSE 74; RESP 15; TEMP 98.4; O2SAT 96
[2023-10-13 06:29] VITALS: BP 101/64; PULSE 64; RESP 17; TEMP 98.4; O2SAT 93
[2023-10-13 07:25] LABS: BASOPHILS % (AUTO) 0.2 % (0-1); EOSINOPHILS % (AUTO) 0 % (0-6); HEMATOCRIT 37.5 % (42.0-52.0); HEMOGLOBIN 12.4 g/dl (14.0-17.9); LYMPHOCYTES % (AUTO) 24.9 % (21-51); MEAN CORPUSCULAR HEMOGLOBIN 30.1 PG (27.0-31.0); MEAN CORPUSCULAR VOLUME 91.1 FL (78-98); MEAN PLATELET VOLUME 7.2 FL (7.4-10.4); MONOCYTES # (AUTO) 0.1 X10'3 (0-0.9); MONOCYTES % (AUTO) 2.2 % (2-12); NEUTROPHILS # (AUTO) 2.9 X10'3 (1.8-7.7); NEUTROPHILS % (AUTO) 72.7 % (42-75); PLATELET COUNT 321 X10'3 (140-440); RED BLOOD COUNT 4.12 X10'6 (4.70-6.10); RED CELL DISTRIBUTION WIDTH 12.7 % (11.5-14.5)
[2023-10-13 07:32] LABS: D-DIMER 0.53 MG/L FEU (0-0.50)
[2023-10-13 07:52] LABS: ALANINE AMINOTRANSFERASE 18 U/L (12-78); ALBUMIN 2.7 G/DL (3.4-5.0); ALBUMIN/GLOBULIN RATIO 0.6 (1.1-1.5); ALKALINE PHOSPHATASE 92 IU/L (46-116); ANION GAP 8 (8-16); ASPARTATE AMINO TRANSFERASE 22 U/L (10-37); BILIRUBIN,TOTAL 0.6 MG/DL (0.1-1.0); BLOOD UREA NITROGEN 24 MG/DL (7-18); BUN/CREATININE RATIO 15.5 (10.0-20.0); C-REACTIVE PROTEIN 0.47 MG/DL (0.0-0.5); CALCIUM 8.8 MG/DL (8.5-10.1); CHLORIDE 98 MMOL/L (99-107); CREATININE 1.55 MG/DL (0.60-1.10); GLUCOSE 118 MG/DL (70-104); POTASSIUM 3.9 MMOL/L (3.5-5.1); SODIUM 132 MMOL/L (135-145); TOTAL CARBON DIOXIDE 26.1 MMOL/L (24-32); eCRCL 64 ML/MIN; eGFR 45 ML/MIN
[2023-10-13 08:00] VITALS: RESP 17; O2SAT 93
[2023-10-13 10:00] VITALS: BP 119/68; PULSE 60; RESP 18; TEMP 98.1; O2SAT 99
[2023-10-13] MEDS: lactose-reduced food (Ensure Enlive) - 237ml bottle PO SCH (13:00)
[2023-10-13 18:00] VITALS: BP 131/77; RESP 18; TEMP 97.2; O2SAT 95
[2023-10-13 20:00] VITALS: RESP 18; O2SAT 95
[2023-10-14] VITALS (7 sets, daily range): BP systolic 93–109; BP diastolic 50–70; PULSE 53–95; RESP 16–18; TEMP 97.2–98.3; O2SAT 94–98
[2023-10-14 07:17] LABS: D-DIMER 0.56 MG/L FEU (0-0.50)
[2023-10-14 07:21] LABS: MONOCYTES # (AUTO) 0.8 X10'3 (0-0.9); MONOCYTES % (AUTO) 10.7 % (2-12); RED CELL DISTRIBUTION WIDTH 12.9 % (11.5-14.5)
[2023-10-14 07:23] LABS: BASOPHILS % (AUTO) 0.5 % (0-1); EOSINOPHILS % (AUTO) 0.5 % (0-6); HEMATOCRIT 35.7 % (42.0-52.0); HEMOGLOBIN 11.7 g/dl (14.0-17.9); LYMPHOCYTES # (AUTO) 1.7 X10'3 (1.1-4.8); LYMPHOCYTES % (AUTO) 22.1 % (21-51); MEAN CORPUSCULAR HEMOGLOBIN 29.7 PG (27.0-31.0); MEAN CORPUSCULAR HGB CONC 32.9 g/dL (33.0-36.5); MEAN CORPUSCULAR VOLUME 90.4 FL (78-98); NEUTROPHILS % (AUTO) 66.2 % (42-75); PLATELET COUNT 353 X10'3 (140-440); RED BLOOD COUNT 3.94 X10'6 (4.70-6.10); WHITE BLOOD COUNT 7.6 X10'3 (4.5-11.0)
[2023-10-14 07:33] LABS: ALANINE AMINOTRANSFERASE 13 U/L (12-78); ALBUMIN 2.6 G/DL (3.4-5.0); ALBUMIN/GLOBULIN RATIO 0.6 (1.1-1.5); ALKALINE PHOSPHATASE 93 IU/L (46-116); ANION GAP 8 (8-16); ASPARTATE AMINO TRANSFERASE 12 U/L (10-37); BILIRUBIN,TOTAL 0.7 MG/DL (0.1-1.0); BLOOD UREA NITROGEN 31 MG/DL (7-18); BUN/CREATININE RATIO 21.1 (10.0-20.0); C-REACTIVE PROTEIN 0.24 MG/DL (0.0-0.5); CALCIUM 8.5 MG/DL (8.5-10.1); CHLORIDE 98 MMOL/L (99-107); CREATININE 1.47 MG/DL (0.60-1.10); GLUCOSE 104 MG/DL (70-104); POTASSIUM 3.6 MMOL/L (3.5-5.1); SODIUM 133 MMOL/L (135-145); TOTAL PROTEIN 6.7 G/DL (6.4-8.2); eCRCL 67 ML/MIN; eGFR 47 ML/MIN
[2023-10-15 06:00] VITALS: BP 115/68; PULSE 56; RESP 16; TEMP 98.3; O2SAT 93
[2023-10-15 06:44] LABS: D-DIMER 0.58 MG/L FEU (0-0.50)
[2023-10-15 06:49] LABS: ALANINE AMINOTRANSFERASE 15 U/L (12-78); ALBUMIN 2.6 G/DL (3.4-5.0); ALBUMIN/GLOBULIN RATIO 0.7 (1.1-1.5); ALKALINE PHOSPHATASE 90 IU/L (46-116); ANION GAP 6 (8-16); ASPARTATE AMINO TRANSFERASE 15 U/L (10-37); BILIRUBIN,TOTAL 0.6 MG/DL (0.1-1.0); BLOOD UREA NITROGEN 37 MG/DL (7-18); BUN/CREATININE RATIO 22.2 (10.0-20.0); C-REACTIVE PROTEIN 0.15 MG/DL (0.0-0.5); CALCIUM 8.6 MG/DL (8.5-10.1); CHLORIDE 97 MMOL/L (99-107); CREATININE 1.67 MG/DL (0.60-1.10); GLUCOSE 100 MG/DL (70-104); POTASSIUM 3.6 MMOL/L (3.5-5.1); SODIUM 132 MMOL/L (135-145); TOTAL CARBON DIOXIDE 28.6 MMOL/L (24-32); TOTAL PROTEIN 6.5 G/DL (6.4-8.2); eCRCL 59 ML/MIN; eGFR 41 ML/MIN
[2023-10-15 06:58] LABS: HEMOGLOBIN 11.8 g/dl (14.0-17.9); MEAN PLATELET VOLUME 7.9 FL (7.4-10.4); MONOCYTES # (AUTO) 0.8 X10'3 (0-0.9)
[2023-10-15 07:01] LABS: BASOPHILS % (AUTO) 0.1 % (0-1); EOSINOPHILS % (AUTO) 0.6 % (0-6); HEMATOCRIT 35.2 % (42.0-52.0); LYMPHOCYTES # (AUTO) 2.1 X10'3 (1.1-4.8); LYMPHOCYTES % (AUTO) 26.1 % (21-51); MEAN CORPUSCULAR HEMOGLOBIN 30.4 PG (27.0-31.0); MEAN CORPUSCULAR HGB CONC 33.4 g/dL (33.0-36.5); MONOCYTES % (AUTO) 9.8 % (2-12); NEUTROPHILS # (AUTO) 5.2 X10'3 (1.8-7.7); NEUTROPHILS % (AUTO) 63.4 % (42-75); PLATELET COUNT 346 X10'3 (140-440); RED BLOOD COUNT 3.87 X10'6 (4.70-6.10); WHITE BLOOD COUNT 8.2 X10'3 (4.5-11.0)
[2023-10-15 10:00] VITALS: BP 91/50; PULSE 61; RESP 18; TEMP 97.7; O2SAT 97
[2023-10-15 18:00] VITALS: BP 105/73; PULSE 58; RESP 14; TEMP 98.3; O2SAT 94
[2023-10-15 20:00] VITALS: RESP 14; O2SAT 94
[2023-10-15 22:00] VITALS: BP 112/70; PULSE 50; RESP 18; TEMP 97.6; O2SAT 95
[2023-10-16 06:50] VITALS: BP 108/67; PULSE 50; RESP 20; TEMP 98.4; O2SAT 96
[2023-10-16 07:47] LABS: BASOPHILS % (AUTO) 0.1 % (0-1); EOSINOPHILS # (AUTO) 0.1 X10'3 (0-0.9); EOSINOPHILS % (AUTO) 0.9 % (0-6); HEMATOCRIT 34.5 % (42.0-52.0); HEMOGLOBIN 11.7 g/dl (14.0-17.9); LYMPHOCYTES # (AUTO) 2.2 X10'3 (1.1-4.8); LYMPHOCYTES % (AUTO) 27.5 % (21-51); MEAN CORPUSCULAR HEMOGLOBIN 30.3 PG (27.0-31.0); MEAN CORPUSCULAR HGB CONC 33.8 g/dL (33.0-36.5); MEAN CORPUSCULAR VOLUME 89.9 FL (78-98); MEAN PLATELET VOLUME 7.6 FL (7.4-10.4); MONOCYTES % (AUTO) 12.9 % (2-12); NEUTROPHILS # (AUTO) 4.7 X10'3 (1.8-7.7); NEUTROPHILS % (AUTO) 58.6 % (42-75); PLATELET COUNT 332 X10'3 (140-440); RED BLOOD COUNT 3.84 X10'6 (4.70-6.10); RED CELL DISTRIBUTION WIDTH 12.8 % (11.5-14.5); WHITE BLOOD COUNT 7.9 X10'3 (4.5-11.0)
[2023-10-16 07:52] LABS: D-DIMER 0.55 MG/L FEU (0-0.50)
[2023-10-16 08:05] LABS: ALANINE AMINOTRANSFERASE 13 U/L (12-78); ALBUMIN 2.5 G/DL (3.4-5.0); ALBUMIN/GLOBULIN RATIO 0.7 (1.1-1.5); ALKALINE PHOSPHATASE 82 IU/L (46-116); ANION GAP 2 (8-16); ASPARTATE AMINO TRANSFERASE 15 U/L (10-37); BILIRUBIN,TOTAL 0.6 MG/DL (0.1-1.0); BLOOD UREA NITROGEN 37 MG/DL (7-18); BUN/CREATININE RATIO 23.3 (10.0-20.0); C-REACTIVE PROTEIN 0.11 MG/DL (0.0-0.5); CALCIUM 8.1 MG/DL (8.5-10.1); CHLORIDE 99 MMOL/L (99-107); CREATININE 1.59 MG/DL (0.60-1.10); GLUCOSE 83 MG/DL (70-104); POTASSIUM 3.5 MMOL/L (3.5-5.1); SODIUM 131 MMOL/L (135-145); TOTAL CARBON DIOXIDE 30.4 MMOL/L (24-32); TOTAL PROTEIN 6.2 G/DL (6.4-8.2); eCRCL 62 ML/MIN; eGFR 43 ML/MIN
[2023-10-16 08:45] VITALS: RESP 20; O2SAT 96
[2023-10-16 10:00] VITALS: BP 95/57; PULSE 60; RESP 20; TEMP 98.4; O2SAT 97
[2023-10-16 20:00] VITALS: BP 104/77; PULSE 59; RESP 20; TEMP 97.4; O2SAT 97
[2023-10-16 20:40] VITALS: RESP 20; O2SAT 97
[2023-10-16 22:00] VITALS: BP 113/72; PULSE 53; RESP 18; TEMP 97.4; O2SAT 93
[2023-10-17 06:00] VITALS: BP 118/69; PULSE 53; RESP 18; TEMP 99; O2SAT 93
[2023-10-17 10:00] VITALS: BP 99/63; PULSE 55; RESP 20; TEMP 98.3; O2SAT 90
[2023-10-17 18:00] VITALS: BP 108/52; PULSE 63; RESP 17; TEMP 98.1; O2SAT 94
[2023-10-17 22:00] VITALS: BP 108/71; PULSE 5; RESP 17; TEMP 97.9; O2SAT 95
[2023-10-18 06:00] VITALS: BP 109/63; PULSE 51; RESP 15; TEMP 98.2; O2SAT 94
[2023-10-18 12:00] VITALS: BP 108/70; PULSE 55; RESP 16; TEMP 98.5; O2SAT 94
[2023-10-18 18:00] VITALS: BP 96/46; PULSE 53; RESP 16; TEMP 97.6; O2SAT 98
[2023-10-18 22:00] VITALS: BP 108/71; PULSE 53; RESP 17; TEMP 97.9; O2SAT 95
[2023-10-19 06:26] VITALS: BP 96/58; PULSE 58; RESP 16; TEMP 97.4; O2SAT 94
[2023-10-19 08:25] VITALS: RESP 16; O2SAT 94
[2023-10-19 10:00] VITALS: BP 93/48; PULSE 77; RESP 18; TEMP 98.8; O2SAT 93
[2023-10-19 18:00] VITALS: BP 93/66; PULSE 87; RESP 20; TEMP 98.7; O2SAT 94
[2023-10-19 22:00] VITALS: BP 90/60; PULSE 67; RESP 17; TEMP 98.3; O2SAT 93
[2023-10-20 06:46] VITALS: BP 91/49; PULSE 60; RESP 20; TEMP 98.2; O2SAT 93
[2023-10-20 07:14] LABS: BASOPHILS % (AUTO) 0.2 % (0-1); EOSINOPHILS # (AUTO) 0.5 X10'3 (0-0.9); EOSINOPHILS % (AUTO) 5.1 % (0-6); HEMATOCRIT 36.3 % (42.0-52.0); HEMOGLOBIN 12.1 g/dl (14.0-17.9); LYMPHOCYTES # (AUTO) 2.9 X10'3 (1.1-4.8); LYMPHOCYTES % (AUTO) 31.2 % (21-51); MEAN CORPUSCULAR HEMOGLOBIN 30.3 PG (27.0-31.0); MEAN CORPUSCULAR HGB CONC 33.5 g/dL (33.0-36.5); MEAN CORPUSCULAR VOLUME 90.5 FL (78-98); MONOCYTES # (AUTO) 1.1 X10'3 (0-0.9); MONOCYTES % (AUTO) 11.8 % (2-12); NEUTROPHILS # (AUTO) 4.8 X10'3 (1.8-7.7); NEUTROPHILS % (AUTO) 51.7 % (42-75); PLATELET COUNT 278 X10'3 (140-440); RED BLOOD COUNT 4.01 X10'6 (4.70-6.10); RED CELL DISTRIBUTION WIDTH 13.3 % (11.5-14.5); WHITE BLOOD COUNT 9.3 X10'3 (4.5-11.0)
[2023-10-20 07:40] LABS: ALANINE AMINOTRANSFERASE 15 U/L (12-78); ALBUMIN 2.5 G/DL (3.4-5.0); ALBUMIN/GLOBULIN RATIO 0.8 (1.1-1.5); ALKALINE PHOSPHATASE 74 IU/L (46-116); ANION GAP 5 (8-16); ASPARTATE AMINO TRANSFERASE 10 U/L (10-37); BILIRUBIN,TOTAL 0.7 MG/DL (0.1-1.0); BLOOD UREA NITROGEN 41 MG/DL (7-18); BUN/CREATININE RATIO 24.6 (10.0-20.0); CALCIUM 8.4 MG/DL (8.5-10.1); CHLORIDE 100 MMOL/L (99-107); CREATININE 1.67 MG/DL (0.60-1.10); GLUCOSE 87 MG/DL (70-104); SODIUM 136 MMOL/L (135-145); TOTAL CARBON DIOXIDE 31.1 MMOL/L (24-32); TOTAL PROTEIN 5.8 G/DL (6.4-8.2); eCRCL 59 ML/MIN; eGFR 41 ML/MIN
[2023-10-20 08:25] VITALS: RESP 20; O2SAT 93
[2023-10-20 18:00] VITALS: BP 116/74; PULSE 63; RESP 18; TEMP 98.4; O2SAT 98
[2023-10-20] MEDS: psyllium seed 5.8 gm packet (sugar-free) PO SCH (20:44)
[2023-10-20 22:00] VITALS: BP 121/68; PULSE 61; RESP 15; TEMP 98.7; O2SAT 94
[2023-10-21] MEDS: normal saline 1000ml 1,000 ML IV SCH (01:10)
[2023-10-21 06:00] VITALS: BP 96/68; PULSE 60; RESP 12; TEMP 98.8; O2SAT 94
[2023-10-21 06:46] LABS: BASOPHILS % (AUTO) 0.2 % (0-1); EOSINOPHILS # (AUTO) 0.6 X10'3 (0-0.9); EOSINOPHILS % (AUTO) 7.4 % (0-6); HEMOGLOBIN 11.5 g/dl (14.0-17.9); LYMPHOCYTES # (AUTO) 2.3 X10'3 (1.1-4.8); LYMPHOCYTES % (AUTO) 27.5 % (21-51); MEAN CORPUSCULAR HEMOGLOBIN 30.8 PG (27.0-31.0); MEAN CORPUSCULAR HGB CONC 33.9 g/dL (33.0-36.5); MEAN CORPUSCULAR VOLUME 90.7 FL (78-98); MONOCYTES # (AUTO) 0.9 X10'3 (0-0.9); MONOCYTES % (AUTO) 11.3 % (2-12); NEUTROPHILS # (AUTO) 4.5 X10'3 (1.8-7.7); NEUTROPHILS % (AUTO) 53.6 % (42-75); PLATELET COUNT 238 X10'3 (140-440); RED BLOOD COUNT 3.75 X10'6 (4.70-6.10); RED CELL DISTRIBUTION WIDTH 12.9 % (11.5-14.5); WHITE BLOOD COUNT 8.4 X10'3 (4.5-11.0)
[2023-10-21 06:56] LABS: ALANINE AMINOTRANSFERASE 12 U/L (12-78); ALBUMIN 2.2 G/DL (3.4-5.0); ALBUMIN/GLOBULIN RATIO 0.7 (1.1-1.5); ALKALINE PHOSPHATASE 72 IU/L (46-116); ANION GAP 2 (8-16); ASPARTATE AMINO TRANSFERASE 10 U/L (10-37); BILIRUBIN,TOTAL 0.8 MG/DL (0.1-1.0); BLOOD UREA NITROGEN 32 MG/DL (7-18); CALCIUM 7.6 MG/DL (8.5-10.1); CHLORIDE 101 MMOL/L (99-107); CREATININE 1.39 MG/DL (0.60-1.10); GLUCOSE 84 MG/DL (70-104); POTASSIUM 3.5 MMOL/L (3.5-5.1); SODIUM 134 MMOL/L (135-145); TOTAL CARBON DIOXIDE 30.7 MMOL/L (24-32); TOTAL PROTEIN 5.5 G/DL (6.4-8.2); eCRCL 71 ML/MIN; eGFR 51 ML/MIN
[2023-10-21 08:00] VITALS: RESP 12
[2023-10-21 18:11] VITALS: BP 112/70; PULSE 68; RESP 16; TEMP 97.8; O2SAT 99
[2023-10-21 20:00] VITALS: RESP 19; O2SAT 97
[2023-10-21 23:00] VITALS: BP 98/65; PULSE 68; RESP 18; TEMP 98.1; O2SAT 94
[2023-10-22 06:00] VITALS: BP 117/70; PULSE 60; RESP 12; TEMP 97.5; O2SAT 94
[2023-10-22 10:00] VITALS: BP 98/63; PULSE 73; RESP 14; TEMP 98.3; O2SAT 96
[2023-10-22 20:00] VITALS: RESP 19; O2SAT 97
[2023-10-23 06:00] VITALS: BP 116/74; PULSE 69; RESP 12; TEMP 98.2; O2SAT 99
[2023-10-23 11:00] VITALS: BP 135/81; PULSE 69; RESP 18; TEMP 97.9; O2SAT 99
[2023-10-23 11:39] LABS: BILIRUBIN,URINE NEGATIVE (Neg); CLARITY,URINE TURBID (Clear); COLOR,URINE YELLOW (Yellow); GLUCOSE, URINE NEGATIVE (Neg); KETONES,URINE NEGATIVE (Neg); LEUKOCYTE ESTERASE ,URINE LARGE (Neg); NITRITES, URINE NEGATIVE (Neg); OCCULT BLOOD,URINE SMALL (Neg); PROTEIN,URINE TRACE mg/dl (Neg); UROBILINOGEN,URINE 0.2 E.U/dL (0.2-1.0)
[2023-10-23 11:43] LABS: UA COLLECTION TYPE FOLEY CATH
[2023-10-23 12:03] LABS: WBC CLUMPS,URINE MANY /HPF (NEGATIVE); WBC,URINE TNTC /HPF (0-4)
[2023-10-23 12:05] LABS: BACTERIA,URINE 3+ /HPF (Neg); SQUAMOUS EPITHELIAL CELL,UR NONE SEEN /LPF (FEW)
[2023-10-23 12:17] LABS: OCCULT BLOOD STOOL NEGATIVE (Neg)
[2023-10-23 13:01] LABS: BASOPHILS % (AUTO) 0.2 % (0-1); EOSINOPHILS # (AUTO) 0.6 X10'3 (0-0.9); EOSINOPHILS % (AUTO) 6.9 % (0-6); HEMATOCRIT 33.9 % (42.0-52.0); HEMOGLOBIN 11.3 g/dl (14.0-17.9); LYMPHOCYTES # (AUTO) 1.8 X10'3 (1.1-4.8); LYMPHOCYTES % (AUTO) 20.9 % (21-51); MEAN CORPUSCULAR HEMOGLOBIN 30.4 PG (27.0-31.0); MEAN CORPUSCULAR HGB CONC 33.2 g/dL (33.0-36.5); MEAN CORPUSCULAR VOLUME 91.7 FL (78-98); MEAN PLATELET VOLUME 7.9 FL (7.4-10.4); MONOCYTES % (AUTO) 11.8 % (2-12); NEUTROPHILS # (AUTO) 5.1 X10'3 (1.8-7.7); NEUTROPHILS % (AUTO) 60.2 % (42-75); PLATELET COUNT 209 X10'3 (140-440); RED CELL DISTRIBUTION WIDTH 13.6 % (11.5-14.5); WHITE BLOOD COUNT 8.5 X10'3 (4.5-11.0)
[2023-10-23 13:26] LABS: ALANINE AMINOTRANSFERASE 17 U/L (12-78); ALBUMIN 2.4 G/DL (3.4-5.0); ALBUMIN/GLOBULIN RATIO 0.8 (1.1-1.5); ALKALINE PHOSPHATASE 80 IU/L (46-116); ANION GAP 6 (8-16); ASPARTATE AMINO TRANSFERASE 14 U/L (10-37); BILIRUBIN,TOTAL 0.6 MG/DL (0.1-1.0); BLOOD UREA NITROGEN 23 MG/DL (7-18); BUN/CREATININE RATIO 16.5 (10.0-20.0); CHLORIDE 104 MMOL/L (99-107); CREATININE 1.39 MG/DL (0.60-1.10); GLUCOSE 86 MG/DL (70-104); LIPASE 77 U/L (16-77); POTASSIUM 3.7 MMOL/L (3.5-5.1); SODIUM 138 MMOL/L (135-145); TOTAL CARBON DIOXIDE 28.5 MMOL/L (24-32); TOTAL PROTEIN 5.6 G/DL (6.4-8.2); eCRCL 71 ML/MIN; eGFR 51 ML/MIN
[2023-10-23 18:00] VITALS: BP 124/79; PULSE 56; RESP 14; TEMP 97.8; O2SAT 99
[2023-10-23 20:00] VITALS: RESP 21; O2SAT 95
[2023-10-23] MEDS: apixaban 5mg tablet PO SCH (20:19)
[2023-10-23 22:00] VITALS: BP 130/74; PULSE 62; RESP 18; TEMP 98.1; O2SAT 99
[2023-10-24 06:54] VITALS: BP 124/76; PULSE 61; RESP 16; TEMP 98.1; O2SAT 91
[2023-10-24 07:15] VITALS: RESP 16; O2SAT 91
[2023-10-24 11:00] VITALS: BP 125/68; PULSE 66; RESP 16; TEMP 98.2; O2SAT 94
[2023-10-24 18:00] VITALS: BP 133/85; PULSE 61; RESP 16; TEMP 97.4; O2SAT 98
[2023-10-24 22:00] VITALS: BP 130/90; PULSE 64; RESP 18; TEMP 98; O2SAT 95
[2023-10-25 06:00] VITALS: BP 119/74; PULSE 66; RESP 17; TEMP 98.4; O2SAT 98
[2023-10-25 08:00] VITALS: RESP 17; O2SAT 98
[2023-10-25 10:00] VITALS: BP 115/93; PULSE 70; RESP 18; TEMP 98.2; O2SAT 93
[2023-10-25 18:00] VITALS: BP 113/70; PULSE 59; RESP 18; TEMP 97.8; O2SAT 94
[2023-10-25 20:00] VITALS: RESP 17; O2SAT 94
[2023-10-25 22:00] VITALS: BP 115/67; PULSE 56; RESP 17; TEMP 97.8; O2SAT 94
[2023-10-26 06:00] VITALS: BP 146/87; PULSE 64; RESP 17; TEMP 98; O2SAT 96
[2023-10-26] MEDS: levoFLOXACIN-Levaquin 750MG/D5 150 ML IV SCH (07:22)
[2023-10-26 08:00] VITALS: RESP 17; O2SAT 96
[2023-10-26 10:00] VITALS: BP 111/68; PULSE 75; RESP 16; TEMP 98.3; O2SAT 97
[2023-10-26 18:00] VITALS: BP 126/71; PULSE 66; RESP 20; TEMP 99; O2SAT 98
[2023-10-26 20:00] VITALS: RESP 20; O2SAT 98
[2023-10-27 06:00] VITALS: BP 114/63; PULSE 68; RESP 16; TEMP 98.3; O2SAT 92
[2023-10-27 08:00] VITALS: RESP 16; O2SAT 92
[2023-10-27 10:00] VITALS: BP 107/71; PULSE 79; RESP 18; TEMP 98.3; O2SAT 94
[2023-10-27 20:00] VITALS: RESP 18; O2SAT 97
[2023-10-28 06:33] VITALS: BP 120/82; PULSE 72; RESP 16; TEMP 98.2; O2SAT 93
[2023-10-28 08:05] VITALS: RESP 16; O2SAT 93
[2023-10-28 10:00] VITALS: BP 125/82; PULSE 65; RESP 14; TEMP 98; O2SAT 96
[2023-10-28 18:00] VITALS: BP 114/71; PULSE 58; RESP 16; TEMP 98; O2SAT 96
[2023-10-28 20:00] VITALS: RESP 17; O2SAT 94
[2023-10-28 22:00] VITALS: BP 120/72; PULSE 61; RESP 17; TEMP 98.4; O2SAT 94
[2023-10-29 06:00] VITALS: BP 103/68; PULSE 61; RESP 16; TEMP 98.5; O2SAT 94
[2023-10-29 08:40] VITALS: RESP 16; O2SAT 94
[2023-10-29 10:00] VITALS: BP 119/75; PULSE 55; RESP 17; TEMP 97.8; O2SAT 97
[2023-10-29] MEDS: levoFLOXACIN 750MG TABLET PO SCH (11:42)
[2023-10-29 18:00] VITALS: BP 134/83; PULSE 53; RESP 11; TEMP 98; O2SAT 98
[2023-10-29 20:00] VITALS: O2SAT 95
[2023-10-29 22:00] VITALS: BP 125/73; PULSE 73; RESP 18; TEMP 97.5; O2SAT 98
[2023-10-30 06:00] VITALS: BP 131/83; PULSE 68; RESP 15; TEMP 97.7; O2SAT 93
[2023-10-30 08:43] VITALS: RESP 16; O2SAT 97
[2023-10-30 16:29] VITALS: BP 112/73; PULSE 68; RESP 18; TEMP 98.2; O2SAT 95
[2023-10-30 18:00] VITALS: BP 130/76; PULSE 62; RESP 18; TEMP 98.6; O2SAT 95
[2023-10-30 20:30] VITALS: RESP 18; O2SAT 95
[2023-10-30 22:00] VITALS: BP 137/83; PULSE 68; RESP 15; TEMP 98.8; O2SAT 96
[2023-10-31 06:00] VITALS: BP 105/76; PULSE 63; RESP 16; TEMP 98.5; O2SAT 94
[2023-10-31 08:00] VITALS: RESP 16; O2SAT 94
[2023-10-31 10:00] VITALS: BP 135/84; PULSE 66; RESP 16; TEMP 97.4; O2SAT 97
[2023-10-31 20:00] VITALS: RESP 16; O2SAT 96
[2023-10-31 20:30] VITALS: RESP 18; O2SAT 96
[2023-10-31 22:00] VITALS: BP 113/80; PULSE 77; RESP 16; TEMP 98.6; O2SAT 96
[2023-11-01 06:00] VITALS: BP 122/72; PULSE 75; RESP 16; TEMP 97.7; O2SAT 100
[2023-11-01 07:28] LABS: ALBUMIN 2.4 G/DL (3.4-5.0); ANION GAP 3 (8-16); BLOOD UREA NITROGEN 13 MG/DL (7-18); BUN/CREATININE RATIO 9.8 (10.0-20.0); CALCIUM 8.4 MG/DL (8.5-10.1); CHLORIDE 103 MMOL/L (99-107); CREATININE 1.32 MG/DL (0.60-1.10); GLUCOSE 83 MG/DL (70-104); POTASSIUM 3.1 MMOL/L (3.5-5.1); SODIUM 136 MMOL/L (135-145); TOTAL CARBON DIOXIDE 29.8 MMOL/L (24-32); eCRCL 74 ML/MIN; eGFR 54 ML/MIN
[2023-11-01 08:00] VITALS: RESP 16; O2SAT 100
[2023-11-01] MEDS ORDERED: potassium Cl 20 mEq SR tablet PO PRN (08:55)
[2023-11-01] MEDS ORDERED: magnesium 2GM in 50ml NS 50 ML IV PRN (08:55)
[2023-11-01] MEDS ORDERED: potassium Cl 40MEQ/1/2NS 520ml 520 ML IV PRN (08:55)
[2023-11-01] MEDS ORDERED: magnesium Cl slow-release 64mg tablet PO PRN (08:55)
[2023-11-01] MEDS ORDERED: magnesium 4gm in 100ml NS 100 ML IV PRN (08:55)
[2023-11-01] MEDS: potassium Cl 20 mEq SR tablet PO PRN (09:25)
[2023-11-01 09:35] LABS: MAGNESIUM 1.9 MG/DL (1.5-2.4)
[2023-11-01 18:00] VITALS: BP 92/60; PULSE 69; RESP 14; TEMP 97.4; O2SAT 93
[2023-11-01] MEDS: K and/or MAG REPLACEMENT MC SCH (20:00)
[2023-11-01 22:00] VITALS: BP 117/78; PULSE 63; RESP 16; TEMP 98.6; O2SAT 95
[2023-11-02 06:00] VITALS: BP 116/95; PULSE 67; RESP 17; TEMP 98.1; O2SAT 91
[2023-11-02 08:00] VITALS: RESP 67; O2SAT 91
[2023-11-02 08:47] LABS: MAGNESIUM 1.8 MG/DL (1.5-2.4); POTASSIUM 3.6 MMOL/L (3.5-5.1)
[2023-11-02 10:00] VITALS: BP 106/73; PULSE 65; RESP 18; TEMP 98.2; O2SAT 94
[2023-11-02 18:00] VITALS: BP 109/71; PULSE 62; RESP 20; TEMP 98.1; O2SAT 95
[2023-11-02 22:00] VITALS: BP 106/74; PULSE 70; RESP 18; TEMP 98.6; O2SAT 92
[2023-11-03 06:00] VITALS: BP 126/72; PULSE 63; RESP 22; TEMP 97.9; O2SAT 92
[2023-11-03 07:32] LABS: MAGNESIUM 1.8 MG/DL (1.5-2.4); POTASSIUM 3.9 MMOL/L (3.5-5.1)
[2023-11-03 08:00] VITALS: RESP 18; O2SAT 97
[2023-11-03 10:00] VITALS: BP 100/64; PULSE 71; RESP 15; TEMP 97.8; O2SAT 95
[2023-11-03 18:00] VITALS: BP 120/69; PULSE 66; RESP 15; TEMP 98.3; O2SAT 95
[2023-11-03 20:00] VITALS: RESP 18; O2SAT 97
[2023-11-03 22:00] VITALS: BP 108/59; PULSE 64; RESP 18; TEMP 98.4; O2SAT 93
[2023-11-04 05:50] LABS: MAGNESIUM 1.8 MG/DL (1.5-2.4); POTASSIUM 3.8 MMOL/L (3.5-5.1)
[2023-11-04 06:58] VITALS: BP 111/64; PULSE 64; RESP 12; TEMP 98.5; O2SAT 92
[2023-11-04 08:00] VITALS: RESP 16; O2SAT 96
[2023-11-04 18:40] VITALS: BP 113/63; PULSE 78; RESP 16; TEMP 97.8; O2SAT 98
[2023-11-04 22:00] VITALS: BP 106/69; PULSE 66; RESP 15; TEMP 98.7; O2SAT 94
[2023-11-05 06:32] VITALS: BP 106/66; PULSE 61; RESP 14; TEMP 97.5; O2SAT 94
[2023-11-05 10:00] VITALS: BP 106/64; PULSE 70; RESP 15; TEMP 98; O2SAT 96
[2023-11-05 18:00] VITALS: BP 103/70; PULSE 71; RESP 16; TEMP 97.7; O2SAT 92
[2023-11-05 20:30] VITALS: RESP 16; O2SAT 96
[2023-11-05 22:00] VITALS: BP 109/68; PULSE 72; RESP 16; TEMP 97.7; O2SAT 95
[2023-11-06] VITALS (7 sets, daily range): BP systolic 99–113; BP diastolic 58–71; PULSE 63–74; RESP 14–18; TEMP 97.2–98.5; O2SAT 93–96
[2023-11-07 06:00] VITALS: BP 97/68; PULSE 67; RESP 14; TEMP 98.1; O2SAT 95
[2023-11-07 08:00] VITALS: RESP 16; O2SAT 95
[2023-11-07] MEDS: LIDOcaine 2% 10ml TOPICAL JELLY (Urojet) TP ONE (10:15)
[2023-11-07 18:00] VITALS: BP 99/66; PULSE 65; RESP 16; TEMP 97.5; O2SAT 94
[2023-11-07 19:18] VITALS: RESP 15; O2SAT 97
[2023-11-07 19:25] VITALS: BP 102/59; PULSE 77; RESP 15; TEMP 97.7; O2SAT 97
[2023-11-07 22:00] VITALS: BP 103/54; PULSE 67; RESP 15; TEMP 97.3; O2SAT 94
[2023-11-08] VITALS (9 sets, daily range): BP systolic 86–119; BP diastolic 53–71; PULSE 64–92; RESP 12–18; TEMP 97.2–97.9; O2SAT 92–98
[2023-11-09 06:32] VITALS: BP 120/69; PULSE 88; RESP 16; TEMP 98.4; O2SAT 93
[2023-11-09 09:00] VITALS: RESP 16; O2SAT 94
[2023-11-09 10:00] VITALS: BP 103/61; PULSE 58; RESP 16; TEMP 98.4; O2SAT 94
[2023-11-09 18:00] VITALS: BP 100/66; PULSE 75; RESP 17; TEMP 97.5; O2SAT 94
[2023-11-09 20:00] VITALS: RESP 18; O2SAT 94
[2023-11-09 22:00] VITALS: BP 90/62; PULSE 60; RESP 18; TEMP 98.3; O2SAT 94
[2023-11-10 07:14] VITALS: BP 104/67; PULSE 61; RESP 20; TEMP 97.8; O2SAT 93
[2023-11-10 09:00] VITALS: RESP 18; O2SAT 96
[2023-11-10 10:00] VITALS: BP 99/64; PULSE 63; RESP 16; TEMP 97.2; O2SAT 95
[2023-11-10 18:00] VITALS: BP 101/66; PULSE 66; RESP 14; TEMP 97.9; O2SAT 94
[2023-11-10 22:00] VITALS: BP 113/62; PULSE 64; RESP 17; TEMP 98.1; O2SAT 96
[2023-11-11 06:00] VITALS: BP 91/64; PULSE 60; RESP 20; TEMP 98.5; O2SAT 91
[2023-11-11 10:00] VITALS: BP 122/57; PULSE 70; RESP 15; TEMP 96.8; O2SAT 92
[2023-11-11 18:00] VITALS: BP 98/68; PULSE 60; RESP 16; TEMP 98; O2SAT 96
[2023-11-11 22:00] VITALS: BP 96/62; PULSE 61; RESP 12; TEMP 97.4; O2SAT 96
[2023-11-12 06:00] VITALS: BP 98/50; PULSE 58; RESP 13; TEMP 97
[2023-11-12 11:00] VITALS: BP 109/71; PULSE 58; RESP 16; TEMP 97.4
[2023-11-12 18:00] VITALS: BP 102/71; PULSE 86; RESP 14; TEMP 97.7
[2023-11-12] MEDS ORDERED: psyllium seed 5.8 gm packet (sugar-free) PO PRN (18:50)
[2023-11-12 20:00] VITALS: RESP 14; O2SAT 93
[2023-11-12 22:00] VITALS: BP 104/62; PULSE 60; RESP 14; TEMP 97.6
[2023-11-13 06:00] VITALS: BP 102/65; PULSE 57; RESP 12; TEMP 97.1
[2023-11-13 11:00] VITALS: BP 104/66; PULSE 66; RESP 20; TEMP 97.5; O2SAT 96
[2023-11-13 18:00] VITALS: BP 103/76; PULSE 64; RESP 18; TEMP 98; O2SAT 97
[2023-11-13 20:00] VITALS: RESP 18; O2SAT 97
[2023-11-13 22:00] VITALS: BP 107/68; PULSE 61; RESP 12; TEMP 97.3; O2SAT 95
[2023-11-14 05:40] VITALS: BP 104/58; PULSE 93; RESP 14; TEMP 97.4; O2SAT 92
[2023-11-14 07:59] VITALS: RESP 14; O2SAT 92
[2023-11-14 12:34] VITALS: BP 104/68; PULSE 60; RESP 16; TEMP 97.6; O2SAT 96
[2023-11-14 18:00] VITALS: BP 106/75; PULSE 62; RESP 18; TEMP 98.9; O2SAT 93
[2023-11-14 22:00] VITALS: BP 116/68; PULSE 74; RESP 18; TEMP 98.4; O2SAT 91
[2023-11-15 06:31] VITALS: BP 100/65; PULSE 56; RESP 18; TEMP 97.8; O2SAT 92
[2023-11-15 07:05] VITALS: RESP 18; O2SAT 92
[2023-11-15 10:22] VITALS: BP 99/57; PULSE 64; RESP 16; TEMP 98.4; O2SAT 96
[2023-11-15 18:00] VITALS: BP 117/67; PULSE 60; RESP 17; TEMP 97.9; O2SAT 92
[2023-11-15 20:00] VITALS: RESP 17; O2SAT 92
[2023-11-15 22:00] VITALS: BP 136/88; PULSE 59; RESP 16; TEMP 98.1; O2SAT 92
[2023-11-16 06:26] VITALS: BP 127/76; PULSE 68; RESP 16; TEMP 98.2; O2SAT 93
[2023-11-16 07:13] VITALS: RESP 16; O2SAT 93
[2023-11-16 10:00] VITALS: BP 98/64; PULSE 54; RESP 16; TEMP 97.5; O2SAT 94
[2023-11-16] MEDS ORDERED: bismuth subsalicylate 262mg chew tablet PO PRN (16:20)
[2023-11-16] MEDS ORDERED: bismuth subsalicylate 262mg/15ml oral suspension PO PRN ×2 (16:27→16:28)
[2023-11-16 18:00] VITALS: BP 109/71; PULSE 55; RESP 16; TEMP 97.7; O2SAT 98
[2023-11-16 20:00] VITALS: RESP 16; O2SAT 98
[2023-11-16 22:50] VITALS: BP 135/78; PULSE 60; RESP 16; TEMP 97.8; O2SAT 93
[2023-11-17] VITALS (7 sets, daily range): BP systolic 98–110; BP diastolic 58–75; PULSE 54–65; RESP 16–18; TEMP 96.8–97.9; O2SAT 94–100
[2023-11-18 06:00] VITALS: BP 100/67; PULSE 56; RESP 18; TEMP 97; O2SAT 93
[2023-11-18 11:00] VITALS: BP 89/64; PULSE 69; RESP 16; TEMP 97.5; O2SAT 94
[2023-11-18 18:00] VITALS: BP 95/67; PULSE 61; RESP 16; TEMP 97.7; O2SAT 97
[2023-11-18 20:20] VITALS: RESP 16
[2023-11-19 06:00] VITALS: BP 108/65; PULSE 54; RESP 16; TEMP 97.8; O2SAT 90
[2023-11-19 10:51] VITALS: BP 97/62; PULSE 53; RESP 18; TEMP 97.8; O2SAT 95
[2023-11-19 18:00] VITALS: BP 97/69; PULSE 57; RESP 18; TEMP 98.1; O2SAT 92
[2023-11-19 20:10] VITALS: RESP 18
[2023-11-19 22:00] VITALS: BP 104/65; PULSE 59; RESP 13; TEMP 98.1; O2SAT 92
[2023-11-20 06:00] VITALS: BP 118/61; PULSE 52; RESP 14; TEMP 97.3; O2SAT 93
[2023-11-20 06:14] LABS: BASOPHILS % (AUTO) 0.6 % (0-1); EOSINOPHILS # (AUTO) 0.4 X10'3 (0-0.9); EOSINOPHILS % (AUTO) 5.3 % (0-6); HEMATOCRIT 35.7 % (42.0-52.0); HEMOGLOBIN 12.2 g/dl (14.0-17.9); LYMPHOCYTES # (AUTO) 2.3 X10'3 (1.1-4.8); LYMPHOCYTES % (AUTO) 31.3 % (21-51); MEAN CORPUSCULAR HGB CONC 34.1 g/dL (33.0-36.5); MEAN CORPUSCULAR VOLUME 90.8 FL (78-98); MEAN PLATELET VOLUME 8.7 FL (7.4-10.4); MONOCYTES # (AUTO) 0.8 X10'3 (0-0.9); MONOCYTES % (AUTO) 10.1 % (2-12); NEUTROPHILS # (AUTO) 3.9 X10'3 (1.8-7.7); NEUTROPHILS % (AUTO) 52.7 % (42-75); PLATELET COUNT 215 X10'3 (140-440); RED BLOOD COUNT 3.93 X10'6 (4.70-6.10); RED CELL DISTRIBUTION WIDTH 14.1 % (11.5-14.5); WHITE BLOOD COUNT 7.4 X10'3 (4.5-11.0)
[2023-11-20 06:24] LABS: ALBUMIN/GLOBULIN RATIO 0.9 (1.1-1.5); ANION GAP 5 (8-16); ASPARTATE AMINO TRANSFERASE 11 U/L (10-37); BILIRUBIN,TOTAL 1.1 MG/DL (0.1-1.0); BLOOD UREA NITROGEN 18 MG/DL (7-18); BUN/CREATININE RATIO 12.1 (10.0-20.0); CALCIUM 8.7 MG/DL (8.5-10.1); CHLORIDE 101 MMOL/L (99-107); CREATININE 1.49 MG/DL (0.60-1.10); GLUCOSE 85 MG/DL (70-104); POTASSIUM 3.1 MMOL/L (3.5-5.1); SODIUM 135 MMOL/L (135-145); TOTAL CARBON DIOXIDE 28.7 MMOL/L (24-32); TOTAL PROTEIN 6.2 G/DL (6.4-8.2); eCRCL 66 ML/MIN; eGFR 47 ML/MIN
[2023-11-20 06:25] LABS: ALANINE AMINOTRANSFERASE 8 U/L (12-78); ALKALINE PHOSPHATASE 97 IU/L (46-116)
[2023-11-20] MEDS ORDERED: magnesium Cl slow-release 64mg tablet PO PRN (06:40)
[2023-11-20] MEDS ORDERED: potassium Cl 40MEQ/1/2NS 520ml 520 ML IV PRN (06:40)
[2023-11-20] MEDS ORDERED: magnesium 4gm in 100ml NS 100 ML IV PRN (06:40)
[2023-11-20] MEDS ORDERED: magnesium 2GM in 50ml NS 50 ML IV PRN (06:40)
[2023-11-20] MEDS: K and/or MAG REPLACEMENT MC SCH (08:00)
[2023-11-20] MEDS: potassium Cl 20 mEq SR tablet PO PRN ×2 (08:53→19:39)
[2023-11-20 11:06] LABS: BILIRUBIN,URINE NEGATIVE (Neg); CLARITY,URINE SLIGHTLY CLOUDY (Clear); COLOR,URINE STRAW (Yellow); GLUCOSE, URINE NEGATIVE (Neg); KETONES,URINE NEGATIVE (Neg); LEUKOCYTE ESTERASE ,URINE SMALL (Neg); NITRITES, URINE NEGATIVE (Neg); OCCULT BLOOD,URINE NEGATIVE (Neg); PH,URINE 5.5 (4.8-8.0); PROTEIN,URINE NEGATIVE (Neg); UROBILINOGEN,URINE 0.2 E.U/dL (0.2-1.0)
[2023-11-20 11:15] LABS: UA COLLECTION TYPE FOLEY CATH
[2023-11-20 11:17] LABS: COARSE GRANULAR CAST 0-3 /LPF (NEGATIVE); RBC,URINE 0-2 /HPF (0-2)
[2023-11-20 11:18] LABS: BACTERIA,URINE 2+ /HPF (Neg); SQUAMOUS EPITHELIAL CELL,UR FEW /LPF (FEW)
[2023-11-20 18:00] VITALS: BP 125/78; PULSE 57; RESP 17; TEMP 97.5; O2SAT 94
[2023-11-20 20:00] VITALS: RESP 18
[2023-11-20 22:00] VITALS: BP 110/68; PULSE 55; RESP 16; TEMP 97.9; O2SAT 93
[2023-11-21 06:00] VITALS: BP 115/71; PULSE 54; RESP 16; TEMP 98.4; O2SAT 93
[2023-11-21 06:24] LABS: MAGNESIUM 1.8 MG/DL (1.5-2.4); POTASSIUM 3.5 MMOL/L (3.5-5.1)
[2023-11-21 08:00] VITALS: RESP 16; O2SAT 93
[2023-11-21 11:00] VITALS: BP 108/58; PULSE 57; RESP 16; TEMP 97.9; O2SAT 96
[2023-11-21 18:00] VITALS: BP 120/83; PULSE 56; RESP 20; TEMP 97.8; O2SAT 93
[2023-11-21 20:00] VITALS: RESP 16; O2SAT 93
[2023-11-22 06:16] LABS: MAGNESIUM 1.9 MG/DL (1.5-2.4); POTASSIUM 3.7 MMOL/L (3.5-5.1)
[2023-11-22 06:46] VITALS: BP 107/69; PULSE 56; RESP 22; TEMP 98.1; O2SAT 93
[2023-11-22 07:36] VITALS: RESP 22; O2SAT 93
[2023-11-22 18:00] VITALS: BP 110/71; PULSE 58; RESP 16; TEMP 98.6; O2SAT 95
[2023-11-22 20:00] VITALS: RESP 16; O2SAT 95
[2023-11-23 05:53] LABS: MAGNESIUM 1.8 MG/DL (1.5-2.4); POTASSIUM 3.3 MMOL/L (3.5-5.1)
[2023-11-23 06:24] VITALS: BP 99/63; PULSE 59; RESP 16; TEMP 97.7; O2SAT 92
[2023-11-23 07:15] VITALS: RESP 16; O2SAT 93
[2023-11-23] MEDS ORDERED: potassium Cl 20 mEq SR tablet PO PRN (07:25)
[2023-11-23] MEDS ORDERED: magnesium 2GM in 50ml NS 50 ML IV PRN (07:25)
[2023-11-23] MEDS ORDERED: potassium Cl 40MEQ/1/2NS 520ml 520 ML IV PRN (07:25)
[2023-11-23] MEDS ORDERED: magnesium Cl slow-release 64mg tablet PO PRN (07:25)
[2023-11-23] MEDS ORDERED: magnesium 4gm in 100ml NS 100 ML IV PRN (07:25)
[2023-11-23] MEDS: potassium Cl 20 mEq SR tablet PO PRN (10:16)
[2023-11-23 10:53] VITALS: BP 98/66; PULSE 64; RESP 15; TEMP 97.4; O2SAT 98
[2023-11-23 18:00] VITALS: BP 114/71; PULSE 52; RESP 16; TEMP 97.7; O2SAT 97
[2023-11-23 20:00] VITALS: RESP 16; O2SAT 97
[2023-11-24 06:49] VITALS: BP 126/69; PULSE 63; RESP 20; TEMP 98.4; O2SAT 98
[2023-11-24 08:00] VITALS: RESP 18
[2023-11-24 08:19] LABS: MAGNESIUM 1.9 MG/DL (1.5-2.4)
[2023-11-24 18:00] VITALS: BP 126/86; PULSE 105; RESP 15; TEMP 97.6; O2SAT 99
[2023-11-24 20:00] VITALS: RESP 18; O2SAT 94
[2023-11-25 06:31] VITALS: BP 93/62; PULSE 58; RESP 16; TEMP 97.3; O2SAT 94
[2023-11-25 08:00] VITALS: RESP 18
[2023-11-25 09:08] LABS: POTASSIUM 3.7 MMOL/L (3.5-5.1)
[2023-11-25 18:00] VITALS: BP 117/71; PULSE 54; RESP 16; TEMP 97.1; O2SAT 92
[2023-11-25 20:00] VITALS: RESP 18; O2SAT 97
[2023-11-26 06:00] VITALS: BP 94/65; PULSE 52; RESP 16; TEMP 97.3; O2SAT 98
[2023-11-26 08:00] VITALS: RESP 18; O2SAT 94
[2023-11-26 08:50] VITALS: RESP 16
[2023-11-26 17:19] VITALS: BP 118/78; PULSE 61; RESP 18; TEMP 97.5; O2SAT 95
[2023-11-26 20:00] VITALS: RESP 18; O2SAT 97
[2023-11-27 06:00] VITALS: BP 110/70; PULSE 66; RESP 17; TEMP 97.3; O2SAT 97
[2023-11-27 08:00] VITALS: RESP 17; O2SAT 98
[2023-11-27 11:00] VITALS: BP 106/77; PULSE 78; RESP 16; TEMP 97.8; O2SAT 95
[2023-11-27 18:00] VITALS: BP 104/62; PULSE 67; RESP 18; TEMP 98.4; O2SAT 96
[2023-11-27 20:10] VITALS: RESP 16
[2023-11-27 22:00] VITALS: BP 119/87; PULSE 57; RESP 12; TEMP 97.5; O2SAT 96
[2023-11-28 02:09] VITALS: RESP 16
[2023-11-28 06:00] VITALS: BP 117/75; PULSE 70; RESP 15; TEMP 97.6; O2SAT 97
[2023-11-28 07:07] VITALS: RESP 16
[2023-11-28 11:00] VITALS: BP 122/85; PULSE 65; RESP 16; TEMP 98.2; O2SAT 94
[2023-11-28 18:00] VITALS: BP 107/70; PULSE 61; RESP 20; TEMP 98; O2SAT 98
[2023-11-28 20:10] VITALS: RESP 18
[2023-11-29 06:00] VITALS: BP 104/64; PULSE 60; RESP 16; TEMP 97.7; O2SAT 98
[2023-11-29 18:00] VITALS: BP 125/71; PULSE 60; RESP 20; TEMP 97.5; O2SAT 96
[2023-11-30 06:16] VITALS: BP 96/68; PULSE 63; RESP 20; TEMP 97.8; O2SAT 91
[2023-11-30 18:00] VITALS: BP 102/65; PULSE 69; RESP 18; TEMP 98.1; O2SAT 94
[2023-11-30 19:43] VITALS: RESP 18; O2SAT 94
[2023-11-30 22:00] VITALS: BP 104/70; PULSE 62; RESP 16; TEMP 97.9; O2SAT 94
[2023-12-01 02:00] VITALS: BP 110/66; PULSE 66; RESP 16; TEMP 97.8; O2SAT 96
[2023-12-01 06:00] VITALS: BP 98/57; PULSE 58; RESP 18; TEMP 97.2; O2SAT 93
[2023-12-01 08:00] VITALS: RESP 18; O2SAT 93
[2023-12-01 18:00] VITALS: BP 95/68; PULSE 78; RESP 16; TEMP 98; O2SAT 92
[2023-12-02 06:00] VITALS: BP 87/61; PULSE 54; RESP 18; TEMP 97.8; O2SAT 92
[2023-12-02 06:02] LABS: BASOPHILS % (AUTO) 0.4 % (0-1); EOSINOPHILS # (AUTO) 0.5 X10'3 (0-0.9); EOSINOPHILS % (AUTO) 6.7 % (0-6); HEMATOCRIT 36.4 % (42.0-52.0); HEMOGLOBIN 12.1 g/dl (14.0-17.9); LYMPHOCYTES # (AUTO) 2.6 X10'3 (1.1-4.8); MEAN CORPUSCULAR HEMOGLOBIN 30.3 PG (27.0-31.0); MEAN CORPUSCULAR HGB CONC 33.2 g/dL (33.0-36.5); MEAN CORPUSCULAR VOLUME 91.2 FL (78-98); MEAN PLATELET VOLUME 8.8 FL (7.4-10.4); MONOCYTES # (AUTO) 0.7 X10'3 (0-0.9); MONOCYTES % (AUTO) 8.7 % (2-12); NEUTROPHILS # (AUTO) 4.2 X10'3 (1.8-7.7); NEUTROPHILS % (AUTO) 52.2 % (42-75); PLATELET COUNT 188 X10'3 (140-440); RED BLOOD COUNT 3.99 X10'6 (4.70-6.10); RED CELL DISTRIBUTION WIDTH 14.6 % (11.5-14.5)
[2023-12-02 06:23] LABS: ALANINE AMINOTRANSFERASE 11 U/L (12-78); ALBUMIN/GLOBULIN RATIO 0.9 (1.1-1.5); ALKALINE PHOSPHATASE 97 IU/L (46-116); ANION GAP 10 (8-16); ASPARTATE AMINO TRANSFERASE 12 U/L (10-37); BILIRUBIN,TOTAL 0.9 MG/DL (0.1-1.0); BLOOD UREA NITROGEN 20 MG/DL (7-18); BUN/CREATININE RATIO 12.5 (10.0-20.0); CALCIUM 8.9 MG/DL (8.5-10.1); CHLORIDE 100 MMOL/L (99-107); GLUCOSE 86 MG/DL (70-104); SODIUM 135 MMOL/L (135-145); TOTAL CARBON DIOXIDE 24.7 MMOL/L (24-32); TOTAL PROTEIN 6.3 G/DL (6.4-8.2); eCRCL 61 ML/MIN; eGFR 43 ML/MIN
[2023-12-02 06:30] LABS: POTASSIUM 2.9 MMOL/L (3.5-5.1)
[2023-12-02] MEDS ORDERED: magnesium 4gm in 100ml NS 100 ML IV PRN ×2 (06:35→11:55)
[2023-12-02] MEDS: potassium Cl 20 mEq SR tablet PO PRN (08:05)
[2023-12-02 08:15] VITALS: BP 110/58; PULSE 87; RESP 16; O2SAT 99
[2023-12-02 08:16] VITALS: RESP 16; O2SAT 99
[2023-12-02] MEDS ORDERED: magnesium Cl slow-release 64mg tablet PO PRN (11:55)
[2023-12-02] MEDS ORDERED: potassium Cl 40MEQ/1/2NS 520ml 520 ML IV PRN (11:55)
[2023-12-02] MEDS ORDERED: potassium Cl 20 mEq SR tablet PO PRN ×2 (11:55)
[2023-12-02] MEDS ORDERED: magnesium 2GM in 50ml NS 50 ML IV PRN (11:55)
[2023-12-02 18:00] VITALS: BP 100/62; PULSE 60; RESP 22; TEMP 97.7; O2SAT 92
[2023-12-02 20:00] VITALS: RESP 18; O2SAT 92
[2023-12-02] MEDS: K and/or MAG REPLACEMENT MC SCH (20:00)
[2023-12-02] MEDS: bismuth subsalicylate 262mg/15ml oral suspension PO PRN (23:36)
[2023-12-03 06:00] VITALS: BP 107/65; PULSE 60; RESP 20; TEMP 97.8; O2SAT 92
[2023-12-03 06:05] LABS: POTASSIUM 3.9 MMOL/L (3.5-5.1)
[2023-12-03 12:30] VITALS: BP 134/81; PULSE 57; RESP 18; TEMP 98.3; O2SAT 96
[2023-12-03 19:00] VITALS: BP 109/70; PULSE 62; RESP 14; TEMP 98.1; O2SAT 97
[2023-12-03 19:40] VITALS: RESP 14; O2SAT 97
[2023-12-03 22:30] VITALS: BP 102/58; PULSE 63; RESP 13; TEMP 96.8; O2SAT 93
[2023-12-03 23:00] VITALS: BP 102/58; PULSE 63; RESP 14; TEMP 96.8; O2SAT 93
[2023-12-04] VITALS (7 sets, daily range): BP systolic 86–135; BP diastolic 57–77; PULSE 54–70; RESP 12–18; TEMP 97.2–98.3; O2SAT 93–96
[2023-12-04 06:17] LABS: MAGNESIUM 1.9 MG/DL (1.5-2.4); POTASSIUM 3.3 MMOL/L (3.5-5.1)
[2023-12-05 06:00] VITALS: BP 111/72; PULSE 50; RESP 15; TEMP 97.6; O2SAT 92
[2023-12-05 06:05] LABS: MAGNESIUM 1.8 MG/DL (1.5-2.4)
[2023-12-05 08:00] VITALS: RESP 16; O2SAT 96
[2023-12-05 11:00] VITALS: BP 114/84; PULSE 55; RESP 15; TEMP 97.3; O2SAT 95
[2023-12-05 18:00] VITALS: BP 118/76; PULSE 54; RESP 14; TEMP 97.6; O2SAT 94
[2023-12-05 20:00] VITALS: RESP 16
[2023-12-06 06:09] LABS: MAGNESIUM 1.8 MG/DL (1.5-2.4); POTASSIUM 3.2 MMOL/L (3.5-5.1)
[2023-12-06 08:15] VITALS: RESP 16
[2023-12-06] MEDS ORDERED: magnesium Cl slow-release 64mg tablet PO PRN (10:35)
[2023-12-06] MEDS ORDERED: potassium Cl 20 mEq SR tablet PO PRN (10:35)
[2023-12-06] MEDS: potassium Cl 20 mEq SR tablet PO PRN (11:48)
[2023-12-06] MEDS: loperamide 2mg capsule PO PRN (14:42)
[2023-12-06 19:00] VITALS: BP 114/77; PULSE 59; RESP 16; TEMP 97.5; O2SAT 94
[2023-12-06 20:00] VITALS: RESP 20; O2SAT 96
[2023-12-07 06:00] VITALS: BP 97/51; PULSE 54; RESP 16; TEMP 98; O2SAT 94
[2023-12-07 06:13] LABS: MAGNESIUM 1.9 MG/DL (1.5-2.4); POTASSIUM 3.8 MMOL/L (3.5-5.1)
[2023-12-07 08:00] VITALS: RESP 16; O2SAT 95
[2023-12-07 08:17] VITALS: BP 100/70; PULSE 62; RESP 16; TEMP 97.8; O2SAT 99
[2023-12-07 19:00] VITALS: BP 116/69; PULSE 56; RESP 18; TEMP 97.2; O2SAT 98
[2023-12-07 20:00] VITALS: RESP 18; O2SAT 97
[2023-12-08 08:00] VITALS: BP 107/66; PULSE 63; RESP 18; TEMP 98; O2SAT 92
[2023-12-08 18:00] VITALS: BP 113/71; PULSE 68; RESP 20; TEMP 98.1; O2SAT 93
[2023-12-08 20:00] VITALS: RESP 20; O2SAT 93
[2023-12-09 05:00] VITALS: BP 108/73; PULSE 56; RESP 20; TEMP 97.8; O2SAT 91
[2023-12-09 08:00] VITALS: RESP 18; O2SAT 96
[2023-12-09 09:32] LABS: BASOPHILS % (AUTO) 0.7 % (0-1); EOSINOPHILS # (AUTO) 0.4 X10'3 (0-0.9); HEMATOCRIT 37.2 % (42.0-52.0); HEMOGLOBIN 12.3 g/dl (14.0-17.9); LYMPHOCYTES # (AUTO) 2.1 X10'3 (1.1-4.8); LYMPHOCYTES % (AUTO) 29.9 % (21-51); MEAN CORPUSCULAR HEMOGLOBIN 30.5 PG (27.0-31.0); MEAN CORPUSCULAR HGB CONC 33.2 g/dL (33.0-36.5); MONOCYTES # (AUTO) 0.5 X10'3 (0-0.9); MONOCYTES % (AUTO) 7.4 % (2-12); NEUTROPHILS # (AUTO) 3.9 X10'3 (1.8-7.7); PLATELET COUNT 213 X10'3 (140-440); RED BLOOD COUNT 4.04 X10'6 (4.70-6.10); RED CELL DISTRIBUTION WIDTH 14.4 % (11.5-14.5); WHITE BLOOD COUNT 6.9 X10'3 (4.5-11.0)
[2023-12-09 09:51] LABS: ALBUMIN/GLOBULIN RATIO 0.9 (1.1-1.5); ALKALINE PHOSPHATASE 97 IU/L (46-116); ANION GAP 4 (8-16); ASPARTATE AMINO TRANSFERASE 5 U/L (10-37); BLOOD UREA NITROGEN 21 MG/DL (7-18); BUN/CREATININE RATIO 13.2 (10.0-20.0); CALCIUM 8.9 MG/DL (8.5-10.1); CHLORIDE 99 MMOL/L (99-107); CREATININE 1.59 MG/DL (0.60-1.10); GLUCOSE 151 MG/DL (70-104); POTASSIUM 3.8 MMOL/L (3.5-5.1); SODIUM 132 MMOL/L (135-145); TOTAL PROTEIN 6.4 G/DL (6.4-8.2); eCRCL 62 ML/MIN; eGFR 43 ML/MIN
[2023-12-09 09:53] LABS: ALANINE AMINOTRANSFERASE < 6 U/L (12-78)
[2023-12-09 10:00] VITALS: BP 111/65; PULSE 61; RESP 16; TEMP 98; O2SAT 97
[2023-12-09 18:00] VITALS: BP 100/66; PULSE 60; RESP 18; TEMP 98.2; O2SAT 92
[2023-12-09 20:00] VITALS: RESP 18; O2SAT 92
[2023-12-09 22:00] VITALS: BP 95/59; PULSE 58; RESP 20; TEMP 98.2; O2SAT 92
[2023-12-10 05:00] VITALS: BP 97/64; PULSE 57; RESP 17; TEMP 98.7; O2SAT 92
[2023-12-10 08:15] VITALS: RESP 18; O2SAT 93
[2023-12-10 12:39] VITALS: BP 104/68; PULSE 59; RESP 18; TEMP 98.1; O2SAT 93
== END 2023-12-10 17:07 | DRG 682 ==
LOC: ER 00:25 → UNDOADMIN 17:27 → ED HOLD 17:27 → ORTHO 4S 09-06 10:35 → SUR 3N 11-08 12:35
PROVIDERS: ADMIT Family Medicine; ATTEND Family Medicine
DX: N17.9 Acute kidney failure, unspecified (principal); G93.41 Metabolic encephalopathy; J96.00 Acute respiratory failure, unspecified whether with hypoxia or hypercapnia; U07.1 COVID-19; N39.0 Urinary tract infection, site not specified; I13.0 Hypertensive heart and chronic kidney disease with heart failure and stage 1 through stage 4 chronic kidney disease, or unspecified chronic kidney disease; R65.10 Systemic inflammatory response syndrome (SIRS) of non-infectious origin without acute organ dysfunction; E86.0 Dehydration; I48.91 Unspecified atrial fibrillation; I50.9 Heart failure, unspecified; N18.9 Chronic kidney disease, unspecified; E11.22 Type 2 diabetes mellitus with diabetic chronic kidney disease; J44.9 Chronic obstructive pulmonary disease, unspecified; E03.9 Hypothyroidism, unspecified; F32.A Depression, unspecified; F20.9 Schizophrenia, unspecified; B96.5 Pseudomonas (aeruginosa) (mallei) (pseudomallei) as the cause of diseases classified elsewhere; E78.5 Hyperlipidemia, unspecified; Z86.73 Personal history of transient ischemic attack (TIA), and cerebral infarction without residual deficits; Z79.01 Long term (current) use of anticoagulants; R14.0 Abdominal distension (gaseous); I95.9 Hypotension, unspecified; K56.41 Fecal impaction; Z82.0 Family history of epilepsy and other diseases of the nervous system
CPT/HCPCS: 36415; 71045; 74018; 74176; 80048; 80053; 80305; 80320; 81001; 82140; 82248; 82272; 82948; 83605; 83690; 83735; 84132; 84439; 84443; 85007; 85025; 85379; 86140; 87040; 87045; 87046; 87077; 87081; 87088; 87186; 87324; 87449; 87811; 89055; 94640; 94760; 97110; 97116; 97161; 97530; 97535; 99285; A4314; A4338; A4349; A4615; A4649; A5200; A6212; A6213; A6250; A6449; A6590; C1758; G0378; J0744; J1956; J2765; J7030; J7040; J7120; J8540; Q9963